=== PATIENT | female | born 1935 | race Caucasian/White ===

== ENCOUNTER → 2016-07-31 | Outpatient (CLI) | payer MEDICARE, OTHER ==
[2016-07-31 09:16] LABS: MEAN CORPUSCULAR HGB CONC 34.6 g/dl (32.0-36.5); MEAN CORPUSCULAR VOLUME 89.5 fl (80.0-96.0); RED CELL DISTRIBUTION WIDTH 12.5 % (11.5-14.5)
[2016-07-31 09:43] LABS: ALBUMIN 3.8 GM/DL (3.2-5.2); ALKALINE PHOSPHATASE 56 U/L (45-117); ALT/SGPT 48 U/L (12-78); ANION GAP 10 MEQ/L (8-16); AST/SGOT 27 U/L (15-37); BILIRUBIN,TOTAL 0.7 MG/DL (0.2-1.0); BLOOD UREA NITROGEN 15 MG/DL (7-18); CALCIUM LEVEL 8.9 MG/DL (8.8-10.2); CARBON DIOXIDE LEVEL 30 MEQ/L (21-32); CHLORIDE LEVEL 97 MEQ/L (98-107); CHOLESTEROL LEVEL 199 MG/DL (<200); CREATININE FOR GFR 0.76 MG/DL (0.55-1.02); GLOMERULAR FILTRATION RATE > 60.0 (>32); GLUCOSE, FASTING 244 MG/DL (83-110); POTASSIUM SERUM 3.7 MEQ/L (3.5-5.1); SODIUM LEVEL 137 MEQ/L (136-145); TOTAL PROTEIN 7.6 GM/DL (6.4-8.2); TRIGLYCERIDES LEVEL 371 MG/DL (<150)
== END ==
LOC: M WUC 08:18
PROVIDERS: ATTEND Family Medicine
DX: N39.0 Urinary tract infection, site not specified (principal); E11.9 Type 2 diabetes mellitus without complications; E78.2 Mixed hyperlipidemia; E55.9 Vitamin D deficiency, unspecified

== ENCOUNTER → 2016-11-15 | Outpatient (CLI) | payer MEDICARE, OTHER ==
[~2016-11-15] MED LIST: AMLO25TA PO; AMLO5TAB2 PO; ASPI81TA PO; CARV3.12 PO; CHLO25TA PO; ELIQ5TAB PO; FISH1000 PO; GLIM2TAB PO; LUTE10TA PO; PRAV40TA2 PO; REDCAP3 PO; SPIR25TA2 PO; TRUL10IN; TRUL10IN SC; VITA10002 PO; VITA500T88 PO; VITMTA PO
[2016-11-15 10:09] LABS: ANION GAP 5 MEQ/L (8-16); BLOOD UREA NITROGEN 14 MG/DL (7-18); CALCIUM LEVEL 9.2 MG/DL (8.8-10.2); CARBON DIOXIDE LEVEL 33 MEQ/L (21-32); CHLORIDE LEVEL 100 MEQ/L (98-107); CREATININE FOR GFR 0.68 MG/DL (0.55-1.02); GLOMERULAR FILTRATION RATE > 60.0 (>32); GLUCOSE, FASTING 261 MG/DL (83-110); POTASSIUM SERUM 3.8 MEQ/L (3.5-5.1); SODIUM LEVEL 138 MEQ/L (136-145)
== END ==
LOC: M WUC 08:16
PROVIDERS: ATTEND Family Medicine
DX: E11.9 Type 2 diabetes mellitus without complications (principal)

== ENCOUNTER 2016-12-15 07:00 | Inpatient (IN) | payer MEDICARE, OTHER ==
[~2016-12-15] VITALS: Ht 152.4 cm; Wt 59.1 kg
[2016-12-15] MEDS ORDERED: CHLO25TA PO ×2 (07:16→10:16)
[2016-12-15] MEDS ORDERED: GLIM2TAB PO ×3 (07:16→10:16)
[2016-12-15] MEDS ORDERED: AMLO5TAB2 PO ×2 (07:16→10:16)
[2016-12-15] MEDS ORDERED: TRUL10IN (07:16)
--- NOTE | 2016-12-15 07:46 | REP ---
Clinical: Chest pain . Comparison: None . Findings: The mediastinum and cardiac silhouette are stable and within normal limits for portable technique. The lung flowers are clear without acute consolidation, effusion, or pneumothorax. Skeletal structures are intact. Impression: No acute cardiopulmonary process appreciated. Signed by Ben Eaton MD 12/15/2016 07:38 A
[2016-12-15 07:50] LABS: BASO % 0.8 % (0.0-1.0); EOS # 0.1 K/mm3 (0.0-0.50); EOS % 1.7 % (0.0-3.0); LARGE UNSTAINED CELL # 0.1 K/mm3 (0.0-0.4); LARGE UNSTAINED CELL % 1.8 % (0.0-4.0); LYMPH # 1.1 K/mm3 (1.5-4.5); LYMPH % 24.8 % (24.0-44.0); MEAN CORPUSCULAR HEMOGLOBIN 31.1 pg (27.0-33.0); MEAN CORPUSCULAR VOLUME 88.7 fl (80.0-96.0); MONO # 0.3 K/mm3 (0.0-0.8); MONO % 5.8 % (0.0-5.0); NEUTROPHILS % 65.2 % (36.0-66.0); PLATELET COUNT, AUTOMATED 188 k/mm3 (150-450); RED CELL DISTRIBUTION WIDTH 12.5 % (11.5-14.5); WHITE BLOOD COUNT 4.5 K/mm3 (4.0-10.0)
[2016-12-15] MEDS: METOPROLOL 5 MG/5 ML VIAL IV SCH ×3 (07:53→08:33)
[2016-12-15 07:56] LABS: INR 0.92
[2016-12-15 08:22] LABS: ALBUMIN 3.6 GM/DL (3.2-5.2); ALBUMIN/GLOBULIN RATIO 1.03 (1.00-1.93); ALKALINE PHOSPHATASE 53 U/L (45-117); ALT/SGPT 42 U/L (12-78); ANION GAP 12 MEQ/L (8-16); AST/SGOT 23 U/L (15-37); BILIRUBIN,DIRECT 0.1 MG/DL (0.0-0.2); BILIRUBIN,TOTAL 0.6 MG/DL (0.2-1.0); BLOOD UREA NITROGEN 13 MG/DL (7-18); CALCIUM LEVEL 8.8 MG/DL (8.8-10.2); CARBON DIOXIDE LEVEL 29 MEQ/L (21-32); CHLORIDE LEVEL 98 MEQ/L (98-107); CREATININE FOR GFR 0.79 MG/DL (0.55-1.02); FREE T4 1.23 NG/DL (0.76-1.46); GLOMERULAR FILTRATION RATE > 60.0 (>32); GLUCOSE, FASTING 356 MG/DL (83-110); POTASSIUM SERUM 3.2 MEQ/L (3.5-5.1); SODIUM LEVEL 139 MEQ/L (136-145); TOTAL PROTEIN 7.1 GM/DL (6.4-8.2)
[2016-12-15] MEDS ORDERED: ASPIRIN 325 MG TAB PO SCH (09:00)
[2016-12-15] MEDS ORDERED: NS 500 ML IV ONE (09:30)
[2016-12-15] MEDS ORDERED: VITA500T88 PO (10:16)
[2016-12-15] MEDS ORDERED: FISH1000 PO (10:16)
[2016-12-15] MEDS ORDERED: VITA10002 PO (10:16)
[2016-12-15] MEDS ORDERED: VITMTA PO (10:16)
[2016-12-15] MEDS ORDERED: TRUL10IN SC (10:16)
[2016-12-15] MEDS ORDERED: REDCAP3 PO (10:16)
[2016-12-15] MEDS ORDERED: PRAV40TA2 PO (10:16)
[2016-12-15] MEDS ORDERED: LUTE10TA PO (10:16)
[2016-12-15] MEDS ORDERED: POTASSIUM CHLORIDE 10 MEQ SR TABLET PO ONE (11:00)
[2016-12-15] MEDS ORDERED: GLUCAGON FOR INJ 1 MG VIAL (J1610) SC PRN (11:30)
[2016-12-15] MEDS ORDERED: DEXTROSE 50% 50 ML SYRINGE IV PRN (11:30)
[2016-12-15] MEDS ORDERED: GLUCOSE 4 GM CHEW TABLET PO PRN (11:30)
[2016-12-15] MEDS: SPIRONOLACTONE 25 MG TAB PO SCH (12:32)
[2016-12-15] MEDS: HumaLOG INSULIN (NovoLOG) PER UNIT SC SCH ×3 (12:32→20:23)
[2016-12-15] MEDS: ENOXAPARIN 100MG/1ML SYRINGE (J1650) SC SCH ×2 (12:33→23:59)
[2016-12-15 16:00] VITALS: BP 140/65
--- NOTE | 2016-12-15 17:27 | ECGEPIP ---
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
[2016-12-15] MEDS: GLIMEPIRIDE 2 MG TAB PO SCH (18:05)
[2016-12-15 20:00] VITALS: BP_SYST 125; BP_SYST 145; BP_DIAS 58; BP_DIAS 66
--- NOTE | 2016-12-15 20:16 | HPE ---
DATE OF ADMISSION: 12/15/2016 CHIEF COMPLAINT: New onset palpitations. HISTORY OF PRESENT ILLNESS: This 81-year-old white female, patient of Dr. Víctor Cruz, presented to [facility] emergency room with new onset of palpitations, which began at roughly 4:00 a.m. today. She states that she got up as she normally does to go to the bathroom and then when she got back into bed she noticed that she did not feel "right." She had an occipital headache and repeated burping sensation, and fluttering sensation of the chest. Denies any chest pain, shortness of breath. No diaphoresis. She had been in normal state of health without any fevers, chills, cough, congestion, abdominal pain, diarrhea, or urinary tract symptoms. She had no alcohol the day prior and had been on her normal medications. She had not been checking her blood sugars, but she has not had classic hypoglycemic symptoms. The patient had a SPECT nuclear stress test done by Dr. Judd in August 2015 for the indication of chest pain, although she does not recall having chest pain. That was read as low risk. The patient reached 5 METS activity, although there was [address] depression in inferolateral leads. There were frequent premature atrial contractions (PAC) and short runs of SVT with rest after exercise. Her was 61%. The patient does report that she has been able to walk roughly every other day at roughly 4 to 5 METS without chest pain, dyspnea on exertion, nor palpitations. The patient has been under increased emotional stress because her actually had a pacemaker placed one week earlier by Dr. Segal. The patient took two 650 mg aspirin this morning because of her symptoms. While the patient was in the emergency room on presentation, she had atrial fibrillation with rapid ventricular rate at 120 to 130, therefore was given 3 IV metoprolol 5 mg at 15 minutes apart. Roughly 20 minutes after the third dose, she had a 5 second period of asystole, during which she felt "funny." No further chromotropic medications have been given. PAST MEDICAL HISTORY: HOSPITALIZATIONS: None recently. ILLNESSES: Hypertension, diabetes mellitus type 2, noninsulin dependent and poorly controlled. Last A1/c in October 2016 was 9.7. Hyperlipidemia, vitamin D deficiency, history of recurrent urinary tract infections. SURGERIES: Appendectomy. MEDICATIONS: Per E-clinical Works and confirmed with patient: - pravastatin 40 mg at night - aspirin 81 mg by mouth daily - Naprosyn 500 mg twice a day as needed - chlorthalidone 12.5 mg daily - amlodipine 5 mg by mouth daily - glyburide 2 mg in the morning and 1 mg at night ALLERGIES: [id number] (KIRK) INHIBITOR, METFORMIN. REVIEW OF SYSTEMS: CONSTITUTIONAL: No weight loss or night sweats. VISION: No diplopia or scatoma. EARS/NOSE/THROAT: No epistaxis or hoarseness. CARDIOVASCULAR: Palpitations as above. No chest pain. PULMONARY: No shortness of breath. No wheeze. GASTROINTESTINAL: No odynophagia, melena or hematochezia. GENITOURINARY: No dysuria or hematuria. DERMATOLOGIC: No rash. ENDOCRINE: No polydipsia, polyuria. RHEUMATOLOGIC: No joint or tendon pain. NEUROLOGIC: No paresthesias or weakness. PHYSICAL EXAMINATION: VITAL SIGNS: 97.0, 75, 20, 115/71, 95% on room air. HEENT: Head is normocephalic, atraumatic. Ears: Tympanic membranes normal bilaterally. Eyes: Clear conjunctivae. Nose: Without discharge. Throat: Clear oropharynx. NECK: Without adenopathy or thyromegaly. CARDIOVASCULAR: Regular rate and rhythm. 2/6 systolic ejection murmur, loudest at upper left sternal border. There is 4 cm of jugular venous distention (JVD). RESPIRATORY: Normal respiratory effort. Normal breath sounds. ABDOMEN: Soft, nontender, nondistended. Positive bowel sounds. No hepatosplenomegaly. EXTREMITIES: Trace pretibial edema bilaterally. NEUROLOGIC: Nonfocal. INVESTIGATIONS: WBC 4.5, hemoglobin and hematocrit 16.3 and 46.5, platelets 188. PT 12.4, PTT 33.6. Sodium 139, potassium 3.2, chloride 98, BUN 13, creatinine 0.8, glucose of 356, AST and ALT 23 and 42, troponin less than 0.02, CK 52, BNP of 122, TSH 1.7, Free T4 1.2. Chest x-ray shows no cardiomegaly. No consolidation or effusion. No pneumothorax. EKG on 12/15/2016 showed normal sinus rhythm at 69 beats per minute. Diffuse repolarization abnormalities, similar to previous EKG from 08/30/2015. ASSESSMENT: This is an 82-year-old white female with new onset symptomatic atrial fibrillation with rapid ventricular rate with asystole after IV metoprolol. PLAN: 1. Cardiovascular. We will admit the patient to [facility] medical/surgical bed. We will continue to hold chronotropic medications given concern for possible tachybrady syndrome. If there are no further significant bradycardic episodes, would introduce low dose carvedilol at 3.125 mg twice a day. For now, we will start spironolactone 25 mg in the morning, given she has very minimal decompensation. She has also been given normal saline 500 mL bolus on admission. This will also help correct her hypokalemia and has antiarrhythmic properties for atrial fibrillation. For now, we will hold her amlodipine given mild decompensation and her chlorthalidone given her systolic blood pressure is still in the 110s. We will followup with serial enzymes and check baseline echocardiogram. We will start anticoagulation with Lovenox 1 mg per kilogram twice a day, given that there is a possibility that she may need permanent pacemaker placed. If this is not the case, we will switch her over to a DOAC. 2. Endocrine. We will continue glyburide but place it 2 mg twice a day and place her on sliding scale NovoLog insulin. The plan was to start the patient in the near future on GLP agonist per Dr. Cruz. We will defer better coverage to him. Continue her home dose statin therapy. Check a morning lipid panel.
[2016-12-15] MEDS: PRAVASTATIN 20 MG TAB PO SCH (20:41)
[2016-12-16] VITALS: BP 131/66
[2016-12-16 04:00] VITALS: BP 159/76
[2016-12-16 05:10] LABS: MEAN CORPUSCULAR HEMOGLOBIN 30.6 pg (27.0-33.0); MEAN CORPUSCULAR HGB CONC 35.2 g/dl (32.0-36.5); RED CELL DISTRIBUTION WIDTH 12.6 % (11.5-14.5); WHITE BLOOD COUNT 5.2 K/mm3 (4.0-10.0)
[2016-12-16 05:21] LABS: ALBUMIN 3.1 GM/DL (3.2-5.2); ALBUMIN/GLOBULIN RATIO 0.89 (1.00-1.93); ALKALINE PHOSPHATASE 40 U/L (45-117); ALT/SGPT 34 U/L (12-78); ANION GAP 11 MEQ/L (8-16); AST/SGOT 19 U/L (15-37); BILIRUBIN,TOTAL 0.5 MG/DL (0.2-1.0); BLOOD UREA NITROGEN 14 MG/DL (7-18); CALCIUM LEVEL 8.4 MG/DL (8.8-10.2); CARBON DIOXIDE LEVEL 28 MEQ/L (21-32); CHLORIDE LEVEL 104 MEQ/L (98-107); CREATININE FOR GFR 0.71 MG/DL (0.55-1.02); GLOMERULAR FILTRATION RATE > 60.0 (>32); GLUCOSE, FASTING 192 MG/DL (83-110); POTASSIUM SERUM 3.7 MEQ/L (3.5-5.1); SODIUM LEVEL 143 MEQ/L (136-145); TOTAL PROTEIN 6.6 GM/DL (6.4-8.2); TRIGLYCERIDES LEVEL 322 MG/DL (<150)
[2016-12-16 05:25] LABS: CHOLESTEROL LEVEL 142 MG/DL (<200)
[2016-12-16 08:00] VITALS: BP 168/77
[2016-12-16] MEDS: HumaLOG INSULIN (NovoLOG) PER UNIT SC SCH ×4 (08:22→20:26)
[2016-12-16] MEDS ORDERED: ASPIRIN 325 MG TAB PO SCH (09:00)
[2016-12-16] MEDS: SPIRONOLACTONE 25 MG TAB PO SCH (09:05)
[2016-12-16] MEDS: ASPIRIN 81 MG CHEW TABLET PO SCH (09:05)
[2016-12-16] MEDS: GLIMEPIRIDE 2 MG TAB PO SCH ×2 (09:38→17:40)
--- NOTE | 2016-12-16 10:23 | ECGEPIP ---
Stationary ECG Study [facility] - ED Test Date: 2016-12-15 Pat Name: MONTY LAGUNA Department: Room: - Gender: F Rn Navigator: elizabeth : 1935 Requested By: NEFTALI Ramos Order Number: [id number] Reading MD: Whitley Feliciano Measurements Intervals [place] Rate: 69 P: 60 SD: 180 QRS: 17 QRSD: 93 T: 59 QT: 381 QTc: 410 Interpretive Statements SINUS RHYTHM NONSPECIFIC ST & T-WAVE ABNORMALITY DELAYED R PROGRESSION RHYTHM CHANGE 7:16 Electronically Signed On 12-16-2016 10:22:57 EDT by Whitley Feliciano
[2016-12-16 12:00] VITALS: BP 191/88
[2016-12-16] MEDS: ENOXAPARIN 100MG/1ML SYRINGE (J1650) SC SCH (12:56)
--- NOTE | 2016-12-16 14:11 | IPNPDOC ---
Subjective Date Seen The patient was seen on 12/16/16. Subjective Chief Complaint/HPI The patient is a 81-year-old female admitted with a reason for visit of Atrial Fibrillation. Events since last encounter feels fine-wants to dc home Constitutional: Denies: Chills, Fever Eyes: Denies: Pain Pulmonary: Denies: Dyspnea, Cough Cardiovascular: Denies: Chest Pain, Palpitations Gastrointestinal: Denies: Nausea, Vomiting Genitourinary: Denies: Dysuria Objective Physical Examination General Exam: Positive: Alert Eye Exam: Positive: PERRLA Chest Exam: Positive: Clear to auscultation Heart Exam: Positive: Rate Normal, Normal S1, Normal S2, Murmurs (2/6 MIKAL loudest R2 ICS ) Telemetry: Positive: No significant arrhythmia Abdomen Exam: Positive: Normal bowel sounds Extremity Exam: Negative: Edema Assessment /Plan Problems (1) Atrial fibrillation Status: Acute Problem Text: 12/16 no recurrent AF since admission 12/15 (converted c metoprolol 5 IV x 3 over 45 min, but then 5 sec pause); remains SR 70-80s; therefore, change Lovenox to apixiban 5 BID and + carvedilol 3.125 BID 12/15 noc ox read pending 12/15 TTE read pending 12/15 TSH 1.7 12/16 T-I 0.03 (2) Hypertension Status: Chronic Problem Text: HD almo 5, CTD 12.5 QD--held on admission 2 hypotension 12/16 restarted amlo at 2.5 BID and added carvedilol 3.125 BID given pAF to juni 25 (switched on admission from CT 12.5 for anti-arrhythmic properties and hypoK on admission. 3.2) 12/16 K 3.7, Mg 2.1 (3) Hyperlipidemia Status: Chronic Response to Treatment: Stable Problem Text: 11/2016 lipids 40/38/322 on prava 40 (4) T2DM (type 2 diabetes mellitus) Status: Chronic Problem Text: to start Trulicity as outpatient in near future 12/16 AC BG mid 200s; therefore, glim 2 BID (HD) to 4 BID 10/2016 A1C 9.7 Plan/VTE VTE Prophylaxis Ordered?: Yes Plan probably dc in AM if stable VS, I&O, 24H, Fishbone Vital Signs/I&O Vital Signs Date Time Temp Pulse Resp B/P (MAP) Pulse Ox O2 Delivery O2 Flow Rate FiO2 12/16/16 12:00 98.6 81 18 191/88 (122) 97 Room Air 12/15/16 13:00 2.0 I&O- Last 24 Hours up to 6 AM 12/16/16 05:59 Intake Total 1180 ml Output Total 250 ml Balance 930 ml Laboratory Data 24H LABS Laboratory Tests 2 12/15/16 17:36: Bedside Glucose (Misc Panel) 228H 12/15/16 19:46: Bedside Glucose (Misc Panel) 248H 12/16/16 04:28: Anion Gap 11, Glomerular Filtration Rate > 60.0, Blood Urea Nitrogen 14, Creatinine 0.71, Sodium Level 143, Potassium Level 3.7, Chloride Level 104, Carbon Dioxide Level 28, Calcium Level 8.4L, Aspartate Amino Transf (AST/SGOT) 19, Alanine Aminotransferase (ALT/SGPT) 34, Alkaline Phosphatase 40L, Total Bilirubin 0.5, Triglycerides Level 322H, LDL Cholesterol 39.6, Total Protein 6.6 , Albumin 3.1L, Magnesium Level 2.0, Troponin I 0.03#, Albumin/Globulin Ratio 0.89L, Total Cholesterol 142, Non-HDL Cholesterol (LDL + VLDL) 104, Total HDL Cholesterol 38L, Cholesterol/HDL Ratio 3.736 12/16/16 12:51: Bedside Glucose (Misc Panel) 218H CBC/BMP Laboratory Tests 12/16/16 04:28 Red Blood Count 4.54, Mean Corpuscular Volume 87.0, Mean Corpuscular Hemoglobin 30.6, Mean Corpuscular Hemoglobin Concent 35.2, Red Cell Distribution Width 12.6 , Calcium Level 8.4 L, Aspartate Amino Transf (AST/SGOT) 19, Alanine Aminotransferase (ALT/SGPT) 34, Alkaline Phosphatase 40 L, Total Bilirubin 0.5, Triglycerides Level 322 H, LDL Cholesterol 39.6, Total Protein 6.6, Albumin 3.1 L Jose Causey M.D. Dec 16, 2016 14:11
--- NOTE | 2016-12-16 14:36 | ECHO ---
DATE: 12/16/2016 REFERRING PHYSICIAN: Dr. Jose Causey Indication: congestive heart failure. Patient measures 60 inches and weighs 132 pounds. DIMENSIONS: IVS 1.0 LV 4.3 LVPW 1.0 LA 3.0 Aorta 2.9 Ascending aorta 3.6 RV 2.3 LV systolic 2.9 FINDINGS: The study is of good technical quality. Left ventricle is of normal size and systolic function with estimated ejection fraction (EF) around 60-65%. Right ventricle is also normal size and systolic function. Both atria appear grossly normal. Aortic valve is minimally sclerotic but has normal mobility. Same applies for mitral valve with mild degenerative abnormalities. Tricuspid valve appears normal. Pulmonic valve was not well visualized. No pericardial effusion is noted. Inferior vena cava is normal size. Aortic root, aortic arch , and abdominal aorta all appear normal. Doppler interrogation reveals no aortic stenosis and mild aortic insufficiency. There is trace mitral and trace tricuspid insufficiency. Calculated pulmonary artery pressure is within normal limits. Mitral inflow pattern and tissue Doppler imaging of mitral annulus reveal grade 1 diastolic dysfunction (but tissue Doppler velocities of mitral annulus are very low, E prime septal 5.5 and E prime lateral 5.6 cm/s). CONCLUSIONS: 1. Study is of good technical quality. 2. Normal left ventricular (LV) size, systolic function. Grade 1 diastolic dysfunction. 3. No significant valvular disease. 4. Normal central venous pressure and likely normal pulmonary artery pressure. COMMENT: Subacute bacterial endocarditis (SBE) prophylaxis is not recommended. MTDD
[2016-12-16 16:00] VITALS: BP 169/77
[2016-12-16 20:00] VITALS: BP 178/59
[2016-12-16] MEDS: CARVedilol 3.125 MG TAB PO SCH (20:25)
[2016-12-16] MEDS: PRAVASTATIN 20 MG TAB PO SCH (20:25)
[2016-12-17] MEDS: ENOXAPARIN 100MG/1ML SYRINGE (J1650) SC SCH
[2016-12-17 00:30] VITALS: BP 148/80
[2016-12-17 04:00] VITALS: BP 140/82
[2016-12-17 04:35] LABS: BASO % 0.9 % (0.0-1.0); EOS # 0.2 K/mm3 (0.0-0.50); EOS % 5.1 % (0.0-3.0); LARGE UNSTAINED CELL # 0.1 K/mm3 (0.0-0.4); LARGE UNSTAINED CELL % 2.3 % (0.0-4.0); LYMPH # 1.5 K/mm3 (1.5-4.5); MEAN CORPUSCULAR HEMOGLOBIN 31.1 pg (27.0-33.0); MEAN CORPUSCULAR HGB CONC 35.6 g/dl (32.0-36.5); MEAN CORPUSCULAR VOLUME 87.4 fl (80.0-96.0); MONO # 0.3 K/mm3 (0.0-0.8); MONO % 6.5 % (0.0-5.0); NEUTROPHILS # 2.1 K/mm3 (1.8-7.7); NEUTROPHILS % 50.1 % (36.0-66.0); PLATELET COUNT, AUTOMATED 168 k/mm3 (150-450); RED CELL DISTRIBUTION WIDTH 12.5 % (11.5-14.5); WHITE BLOOD COUNT 4.2 K/mm3 (4.0-10.0)
[2016-12-17 04:51] LABS: ALBUMIN 3.1 GM/DL (3.2-5.2); ALBUMIN/GLOBULIN RATIO 0.84 (1.00-1.93); ALKALINE PHOSPHATASE 45 U/L (45-117); ALT/SGPT 34 U/L (12-78); ANION GAP 8 MEQ/L (8-16); AST/SGOT 22 U/L (15-37); BILIRUBIN,TOTAL 0.6 MG/DL (0.2-1.0); BLOOD UREA NITROGEN 15 MG/DL (7-18); CALCIUM LEVEL 8.6 MG/DL (8.8-10.2); CARBON DIOXIDE LEVEL 30 MEQ/L (21-32); CHLORIDE LEVEL 103 MEQ/L (98-107); CREATININE FOR GFR 0.72 MG/DL (0.55-1.02); GLOMERULAR FILTRATION RATE > 60.0 (>32); GLUCOSE, FASTING 215 MG/DL (83-110); POTASSIUM SERUM 3.7 MEQ/L (3.5-5.1); SODIUM LEVEL 141 MEQ/L (136-145); TOTAL PROTEIN 6.8 GM/DL (6.4-8.2)
[2016-12-17] MEDS: HumaLOG INSULIN (NovoLOG) PER UNIT SC SCH (07:30)
[2016-12-17 08:00] VITALS: BP 156/76
[2016-12-17] MEDS: GLIMEPIRIDE 2 MG TAB PO SCH (08:46)
[2016-12-17] MEDS: CARVedilol 3.125 MG TAB PO SCH (08:49)
[2016-12-17] MEDS: SPIRONOLACTONE 25 MG TAB PO SCH (08:49)
[2016-12-17 08:50] VITALS: BP 156/76
[2016-12-17] MEDS: ASPIRIN 81 MG CHEW TABLET PO SCH (08:50)
[2016-12-17] MEDS ORDERED: AMLO25TA PO (09:39)
[2016-12-17] MEDS ORDERED: CARV3.12 PO (09:39)
[2016-12-17] MEDS ORDERED: ASPI81TA PO (09:39)
[2016-12-17] MEDS ORDERED: SPIR25TA2 PO (09:39)
[2016-12-17] MEDS ORDERED: ELIQ5TAB PO (09:40)
--- NOTE | 2016-12-17 10:22 | NOCOX ---
DATE OF PROCEDURE: 12/15/2016 Oxygen saturation was 97% on room air with a heart rate of 71 at baseline. The entire test was performed on room air. Oxygen saturation ranged from 76-99%. Heart rate ranged from 52-116. Longest continuous time with a saturation less than 88% was 36 minutes. However, the total time with an oxygen saturation less than 88% was 2 minutes and 24 seconds. There was minimal variation throughout the evening. IMPRESSION: Minimal hypoxia without significantly prolonged hypoxic events. There is variation in both the heart rate and oxygen saturation. If sleep apnea is suspected would consider in lab polysomnogram.
--- NOTE | 2016-12-17 10:27 | DSES ---
DATE OF ADMISSION: 12/15/2016 DATE OF DISCHARGE: PRIMARY CARE PROVIDER: Dr. Víctor Cruz. HISTORY: This is an 81-year-old female patient who presented to [facility] emergency room with the onset of palpitations. She got up at about 4:00 a.m. to go to the bathroom as she normally does. When she went back to bed, she noticed she did not feel right. She also noted an occipital headache and repeated burping sensation along with a fluttering in her chest prompting her presentation in the emergency room where she was found to be in atrial fibrillation, new onset. She has been started on carvedilol 3.125 mg twice daily as well as spironolactone 25 mg daily. Her chlorthalidone was held as well. She was admitted to the progressive care unit for further management and monitoring including telemetry. She has converted from atrial fibrillation to normal sinus rhythm. She has tolerated the carvedilol as well as apixaban 5 mg twice daily. She has been started on Norvasc for blood pressure control 2.5 mg daily as well. On admission, she was placed on Lovenox 60 mg twice daily and the apixaban will be started at discharge. DISCHARGE DIAGNOSES: Atrial fibrillation, new onset. Hypertension. Hyperlipidemia. Diabetes mellitus type 2. DISCHARGE MEDICATIONS: - apixaban 5 mg by mouth daily - carvedilol 3.25 mg by mouth daily - amlodipine 2.5 mg daily - aspirin 81 mg daily - spironolactone 25 mg daily - vitamin C 500 mg daily - vitamin B12 1000 mcg daily - fish oil 1000 mg daily - glimepiride 2 mg in the morning, 1 mg in the evening. - Lutin 10 mg daily - multivitamin 1 tablet daily - pravastatin 20 mg daily. - red yeast rice 600 mg daily - Trulicity 0.75 mg subcu weekly. Discharge plan will be to followup with Dr. Cruz in one week. Activity should be as tolerated. Diet should be consistent carbohydrate.
== END 2016-12-17 10:10 | disposition home or self-care (01) | DRG 310 ==
LOC: M ED 07:00 → M ED INP 11:17 → M ICU 20:05
PROVIDERS: ADMIT Family Medicine; ATTEND Family Medicine
DX: I48.91 Unspecified atrial fibrillation (principal); I10 Essential (primary) hypertension; E78.5 Hyperlipidemia, unspecified; E11.9 Type 2 diabetes mellitus without complications; Z79.82 Long term (current) use of aspirin; Z79.84 Long term (current) use of oral hypoglycemic drugs; Z79.899 Other long term (current) drug therapy; Z87.440 Personal history of urinary (tract) infections; Z88.8 Allergy status to other drugs, medicaments and biological substances

== ENCOUNTER → 2016-12-31 | Outpatient (CLI) | payer MEDICARE, OTHER ==
--- NOTE | 2017-01-03 19:22 | HOLTMON ---
[facility] Test Date: 2016-12-31 Pat Name: MONTY LAGUNA Department: Room: - Gender: Mitten Sewer: Tiesha Schultz : 1935 Requested By: Víctor Cruz Order Number: [id number] Reading MD: Socorro Matthews Interpretive Statements Patient was monitored for 24 hours. Sinus rhythm with normal AV conduction was the baseline mechanism. Minimal HR was 45 bpm, average HR 63 bpm and maximum HR 130 bpm. There were no pauses over 2 seconds and no episodes of atrial fibrillation. Rare PVC's were seen, no ventricular tachycardia. Occasional PAC's were observed including runs of atrial tachycardia (max. 8 beats). There was no diary. Electronically Signed On 01-03-2017 19:21:50 EDT by Socorro Matthews
== END ==
LOC: M EKG 11:11
PROVIDERS: ATTEND Family Medicine
DX: I48.0 Paroxysmal atrial fibrillation (principal)

== ENCOUNTER → 2017-01-22 | Outpatient (CLI) | payer MEDICARE, OTHER ==
[2017-01-22 14:04] LABS: ANION GAP 7 MEQ/L (8-16); BLOOD UREA NITROGEN 18 MG/DL (7-18); CALCIUM LEVEL 9.1 MG/DL (8.8-10.2); CARBON DIOXIDE LEVEL 28 MEQ/L (21-32); CHLORIDE LEVEL 103 MEQ/L (98-107); CREATININE FOR GFR 0.76 MG/DL (0.55-1.02); GLOMERULAR FILTRATION RATE > 60.0 (>32); GLUCOSE, FASTING 123 MG/DL (83-110); POTASSIUM SERUM 4.8 MEQ/L (3.5-5.1); SODIUM LEVEL 138 MEQ/L (136-145)
== END ==
LOC: M WUC 09:43
PROVIDERS: ATTEND Family Medicine
DX: I48.0 Paroxysmal atrial fibrillation (principal); E11.9 Type 2 diabetes mellitus without complications

== ENCOUNTER → 2018-01-13 | Outpatient (CLI) | payer MEDICARE, OTHER ==
[2018-01-13 13:57] LABS: HEMATOCRIT 45.2 % (36.0-47.0); MEAN CORPUSCULAR HEMOGLOBIN 29.5 pg (27.0-33.0); MEAN CORPUSCULAR HGB CONC 33.2 g/dl (32.0-36.5); MEAN CORPUSCULAR VOLUME 88.8 fl (80.0-96.0); PLATELET COUNT, AUTOMATED 196 10^3/uL (150-450); RED BLOOD COUNT 5.09 10^6/uL (4.00-5.40); RED CELL DISTRIBUTION WIDTH 13.1 % (11.5-14.5); WHITE BLOOD COUNT 5.5 10^3/uL (4.0-10.0)
[2018-01-13 14:02] LABS: ESTIMATED AVERAGE GLUCOSE 131 MG/DL (60-110); HEMOGLOBIN A1c 6.2 %
[2018-01-13 14:13] LABS: ALBUMIN 3.8 GM/DL (3.2-5.2); ALBUMIN/GLOBULIN RATIO 1.09 (1.00-1.93); ALKALINE PHOSPHATASE 48 U/L (45-117); ALT/SGPT 25 U/L (12-78); ANION GAP 8 MEQ/L (8-16); AST/SGOT 14 U/L (7-37); BILIRUBIN,TOTAL 0.7 MG/DL (0.2-1.0); BLOOD UREA NITROGEN 16 MG/DL (7-18); CALCIUM LEVEL 8.8 MG/DL (8.8-10.2); CARBON DIOXIDE LEVEL 28 MEQ/L (21-32); CHLORIDE LEVEL 105 MEQ/L (98-107); CHOLESTEROL LEVEL 159 MG/DL (<200); CHOLESTEROL RISK RATIO 3.613 (<5); CREATININE FOR GFR 0.78 MG/DL (0.55-1.30); GLOMERULAR FILTRATION RATE > 60.0 (>32); GLUCOSE, FASTING 121 MG/DL (70-100); HDL CHOLESTEROL 44 MG/DL (>40); LDL CHOLESTEROL 68 MG/DL (<100); NON-HDL-C 115 MG/DL; POTASSIUM SERUM 4.9 MEQ/L (3.5-5.1); SODIUM LEVEL 141 MEQ/L (136-145); TOTAL 25(OH) VITAMIN D 36.7 NG/ML (30.0-100.0); TOTAL PROTEIN 7.3 GM/DL (6.4-8.2); TRIGLYCERIDES LEVEL 237 MG/DL (<150)
[2018-01-13 14:22] LABS: MALB URINE SIEMENS 12.1 MG/L
[2018-01-13 14:26] LABS: MAU/CREAT RATIO 20.2 MCG/MG (0.0-30.0)
== END ==
LOC: M WUC 09:07
DX: I48.0 Paroxysmal atrial fibrillation (principal); E11.9 Type 2 diabetes mellitus without complications; E78.2 Mixed hyperlipidemia; E55.9 Vitamin D deficiency, unspecified
CPT/HCPCS: 80053

== ENCOUNTER 2018-01-21 16:50 | Inpatient (IN) | payer MEDICARE, OTHER ==
[~2018-01-21 16:50] MED LIST changes: -AMLO25TA PO; -AMLO5TAB2 PO; -ASPI81TA PO; -CARV3.12 PO; -CHLO25TA PO; +DEXTROSE 50% 50 ML SYRINGE IV; -ELIQ5TAB PO; -FISH1000 PO; -GLIM2TAB PO; +GLUCAGON FOR INJ 1 MG VIAL (J1610) SC; +GLUCOSE 4 GM CHEW TABLET PO; -LUTE10TA PO; -PRAV40TA2 PO; -REDCAP3 PO; -SPIR25TA2 PO; -TRUL10IN; -TRUL10IN SC; -VITA10002 PO; -VITA500T88 PO; -VITMTA PO
[2018-01-21 17:59] LABS: BEDSIDE GLUCOSE 138 MG/DL (83-110)
[2018-01-21 18:01] LABS: HEMATOCRIT 44.3 % (36.0-47.0); HEMOGLOBIN 14.9 g/dl (12.0-15.5); MEAN CORPUSCULAR HEMOGLOBIN 29.7 pg (27.0-33.0); MEAN CORPUSCULAR HGB CONC 33.6 g/dl (32.0-36.5); MEAN CORPUSCULAR VOLUME 88.4 fl (80.0-96.0); PLATELET COUNT, AUTOMATED 199 10^3/uL (150-450); RED BLOOD COUNT 5.01 10^6/uL (4.00-5.40); WHITE BLOOD COUNT 7.3 10^3/uL (4.0-10.0)
[2018-01-21 18:53] LABS: APPEARANCE, URINE MANUAL CLOUDY (CLEAR); BILIRUBIN, URINE MANUAL OBSCURED (NEGATIVE); BLOOD URINE MANUAL OBSCURED (NEGATIVE); COLOR, URINE MANUAL AMBER (YELLOW); GLUCOSE, URINE (UA) MANUAL OBSCURED mg/dL (NEGATIVE); KETONE, URINE MANUAL OBSCURED mg/dL (NEGATIVE); LEUKOCYTE ESTERASE, URINE MAN OBSCURED (NEGATIVE); NITRITE, URINE MANUAL OBSCURED (NEGATIVE); PH,URINE MAN OBSCURED UNITS (5.0 - 7.0); PROTEIN, URINE MANUAL OBSCURED mg/dL (NEGATIVE); UROBILINOGEN, URINE MANUAL OBSCURED mg/dl (NORMAL)
[2018-01-21 18:54] LABS: MICROSCOPIC INDICATED? MAN YES (NO)
[2018-01-21 19:05] LABS: SQUAMOUS EPITHELIAL CELL URINE SMALL AMOUNT /hpf (SMALL AMT)
[2018-01-21 19:08] LABS: OTHER CRYSTALS, URINE BILIRUBIN /hpf
[2018-01-21 19:09] LABS: BACTERIA, URINE LARGE AMOUNT; HYALINE CAST, URINE NONE SEEN /lpf (0-1); MICROSCOPIC EXAM PERFORMED
[2018-01-21] MEDS: METOPROLOL 5 MG/5 ML VIAL IV ×3 (19:19→19:50)
[2018-01-21 20:16] LABS: BEDSIDE GLUCOSE 155 MG/DL (83-110)
[2018-01-21] MEDS: HumaLOG INSULIN (NovoLOG) PER UNIT SC (20:53)
[2018-01-21] MEDS: PRAVASTATIN 20 MG TAB PO (20:53)
[2018-01-21] MEDS: APIXABAN 5 MG TAB (ELIQUIS) PO (20:53)
[2018-01-21] MEDS: CARVedilol 6.25 MG TAB PO (20:53)
[2018-01-21] MEDS ORDERED: APIXABAN 2.5 MG TAB (ELIQUIS) PO (21:00)
[2018-01-21] MEDS ORDERED: CEPHALEXIN 500 MG CAP PO (21:00)
[2018-01-21 22:36] LABS: CK-MB VALUE MASS < 1.0 NG/ML (<3.6); CPK CREATINE PHOSPHOKINASE 54 U/L (26-192); MB/CK RELATIVE INDEX 1.85 (< OR =4); TROPONIN I < 0.02 NG/ML (< 0.10)
[2018-01-21 22:45] LABS: BLOOD UREA NITROGEN 26 MG/DL (7-18); CHLORIDE LEVEL 110 MEQ/L (98-107); GLOMERULAR FILTRATION RATE > 60.0 (>32); GLUCOSE, FASTING 142 MG/DL (70-100); SODIUM LEVEL 142 MEQ/L (136-145)
[2018-01-21 22:46] LABS: ANION GAP 8 MEQ/L (8-16); CALCIUM LEVEL 8.9 MG/DL (8.8-10.2); CARBON DIOXIDE LEVEL 24 MEQ/L (21-32)
[2018-01-21 22:47] LABS: ALBUMIN 3.8 GM/DL (3.2-5.2); ALBUMIN/GLOBULIN RATIO 1.03 (1.00-1.93); ALKALINE PHOSPHATASE 49 U/L (45-117); ALT/SGPT 25 U/L (12-78); AST/SGOT 20 U/L (7-37); BILIRUBIN,TOTAL 0.4 MG/DL (0.2-1.0); MAGNESIUM LEVEL 2.3 MG/DL (1.8-2.4); TOTAL PROTEIN 7.5 GM/DL (6.4-8.2)
[2018-01-22] MEDS: CEPHALEXIN 500 MG CAP PO ×3 (00:47→20:21)
[2018-01-22 05:01] LABS: HEMATOCRIT 43.4 % (36.0-47.0); HEMOGLOBIN 14.3 g/dl (12.0-15.5); MEAN CORPUSCULAR HEMOGLOBIN 29.2 pg (27.0-33.0); MEAN CORPUSCULAR HGB CONC 32.9 g/dl (32.0-36.5); MEAN CORPUSCULAR VOLUME 88.8 fl (80.0-96.0); PLATELET COUNT, AUTOMATED 185 10^3/uL (150-450); RED BLOOD COUNT 4.89 10^6/uL (4.00-5.40); RED CELL DISTRIBUTION WIDTH 13.1 % (11.5-14.5); WHITE BLOOD COUNT 10.9 10^3/uL (4.0-10.0)
[2018-01-22 05:48] LABS: ANION GAP 7 MEQ/L (8-16); BLOOD UREA NITROGEN 22 MG/DL (7-18); CALCIUM LEVEL 8.7 MG/DL (8.8-10.2); CARBON DIOXIDE LEVEL 26 MEQ/L (21-32); CHLORIDE LEVEL 106 MEQ/L (98-107); CK-MB VALUE MASS < 1.0 NG/ML (<3.6); CPK CREATINE PHOSPHOKINASE 32 U/L (26-192); CREATININE FOR GFR 0.89 MG/DL (0.55-1.30); GLOMERULAR FILTRATION RATE > 60.0 (>32); GLUCOSE, FASTING 145 MG/DL (70-100); MAGNESIUM LEVEL 2.2 MG/DL (1.8-2.4); MB/CK RELATIVE INDEX 3.12 (< OR =4); POTASSIUM SERUM 4.2 MEQ/L (3.5-5.1); SODIUM LEVEL 139 MEQ/L (136-145); TROPONIN I < 0.02 NG/ML (< 0.10)
[2018-01-22] MEDS: APIXABAN 5 MG TAB (ELIQUIS) PO (09:00)
[2018-01-22] MEDS: HumaLOG INSULIN (NovoLOG) PER UNIT SC ×4 (09:01→20:22)
[2018-01-22] MEDS: CARVedilol 6.25 MG TAB PO ×2 (09:04→20:22)
[2018-01-22] MEDS: NS 0.45% 1,000 ML IV (09:40)
[2018-01-22] MEDS: APIXABAN 2.5 MG TAB (ELIQUIS) PO ×2 (09:40→20:21)
[2018-01-22] MEDS: DIGOXIN INJ 0.5 MG/2 ML AMP (J1160) IV ×2 (09:40→12:46)
[2018-01-22 11:29] LABS: BEDSIDE GLUCOSE 165 MG/DL (83-110)
[2018-01-22 15:26] LABS: CK-MB VALUE MASS < 1.0 NG/ML (<3.6); CPK CREATINE PHOSPHOKINASE 52 U/L (26-192); MB/CK RELATIVE INDEX 1.92 (< OR =4); TROPONIN I < 0.02 NG/ML (< 0.10)
[2018-01-22 17:13] LABS: BEDSIDE GLUCOSE 119 MG/DL (83-110)
[2018-01-22 20:21] LABS: BEDSIDE GLUCOSE 132 MG/DL (83-110)
[2018-01-22] MEDS: PRAVASTATIN 20 MG TAB PO (20:21)
[2018-01-23 04:57] LABS: HEMATOCRIT 41.7 % (36.0-47.0); HEMOGLOBIN 13.7 g/dl (12.0-15.5); MEAN CORPUSCULAR HEMOGLOBIN 29.6 pg (27.0-33.0); MEAN CORPUSCULAR HGB CONC 32.9 g/dl (32.0-36.5); MEAN CORPUSCULAR VOLUME 90.1 fl (80.0-96.0); PLATELET COUNT, AUTOMATED 179 10^3/uL (150-450); RED BLOOD COUNT 4.63 10^6/uL (4.00-5.40); WHITE BLOOD COUNT 6.1 10^3/uL (4.0-10.0)
[2018-01-23 05:24] LABS: ANION GAP 7 MEQ/L (8-16); BLOOD UREA NITROGEN 20 MG/DL (7-18); CALCIUM LEVEL 8.6 MG/DL (8.8-10.2); CARBON DIOXIDE LEVEL 26 MEQ/L (21-32); CHLORIDE LEVEL 108 MEQ/L (98-107); CREATININE FOR GFR 0.87 MG/DL (0.55-1.30); GLOMERULAR FILTRATION RATE > 60.0 (>32); GLUCOSE, FASTING 132 MG/DL (70-100); POTASSIUM SERUM 4.1 MEQ/L (3.5-5.1); SODIUM LEVEL 141 MEQ/L (136-145)
[2018-01-23] MEDS: CEPHALEXIN 500 MG CAP PO (08:36)
[2018-01-23] MEDS: DIGOXIN 0.125 MG TAB PO (08:37)
[2018-01-23] MEDS: CARVedilol 6.25 MG TAB PO (08:37)
[2018-01-23] MEDS: APIXABAN 2.5 MG TAB (ELIQUIS) PO (08:37)
[2018-01-23] MEDS: HumaLOG INSULIN (NovoLOG) PER UNIT SC (08:38)
== END 2018-01-23 10:42 | disposition home or self-care (01) | DRG 309 ==
LOC: M ICU 16:50
DX: I48.0 Paroxysmal atrial fibrillation (principal); N39.0 Urinary tract infection, site not specified; E78.2 Mixed hyperlipidemia; E11.9 Type 2 diabetes mellitus without complications; E88.81 Metabolic syndrome and other insulin resistance; E55.9 Vitamin D deficiency, unspecified; B96.20 Unspecified Escherichia coli [E. coli] as the cause of diseases classified elsewhere; Z79.82 Long term (current) use of aspirin; Z79.84 Long term (current) use of oral hypoglycemic drugs; Z79.899 Other long term (current) drug therapy; Z88.8 Allergy status to other drugs, medicaments and biological substances; Z90.49 Acquired absence of other specified parts of digestive tract

== ENCOUNTER → 2018-01-21 | Outpatient (REF) | payer MEDICARE, OTHER ==
[2018-01-21 20:43] LABS: APPEARANCE, URINE MANUAL TURBID (CLEAR); COLOR, URINE MANUAL ORANGE (YELLOW)
[2018-01-21 20:45] LABS: BILIRUBIN, URINE MANUAL OBSCURED (NEGATIVE); BLOOD URINE MANUAL NEGATIVE (NEGATIVE); GLUCOSE, URINE (UA) MANUAL NEGATIVE (NEGATIVE); KETONE, URINE MANUAL OBSCURED mg/dL (NEGATIVE); LEUKOCYTE ESTERASE, URINE MAN POSITIVE (NEGATIVE); MICROSCOPIC INDICATED? MAN YES (NO); NITRITE, URINE MANUAL OBSCURED (NEGATIVE); PROTEIN, URINE MANUAL OBSCURED mg/dL (NEGATIVE); SPECIFIC GRAVITY,URINE MANUAL 1.019 (1.002-1.035); UROBILINOGEN, URINE MANUAL OBSCURED mg/dl (NORMAL)
[2018-01-21 20:53] LABS: MICROSCOPIC EXAM PERFORMED
[2018-01-21 21:00] LABS: CALCIUM OXALATE CRYSTALS,URINE MOD AMOUNT /hpf; OTHER CRYSTALS, URINE SULFA /hpf; WBC, URINE 15-20 /hpf (0-3)
[2018-01-21 21:01] LABS: BACTERIA, URINE MOD AMOUNT; HYALINE CAST, URINE NONE SEEN /lpf (0-1); RBC, URINE 0-1 /hpf (0-3); SQUAMOUS EPITHELIAL CELL URINE MOD AMOUNT /hpf (SMALL AMT)
[2018-01-21 21:02] LABS: AMORPHOUS SEDIMENT, URINE SMALL AMOUNT (NEGATIVE); MUCUS, URINE SMALL AMOUNT (NEGATIVE)
[2018-01-21 21:03] LABS: TRANSITIONAL EPI CELLS, URINE SMALL AMOUNT /hpf
== END ==
LOC: M SFHCADAM 19:48
DX: R00.0 Tachycardia, unspecified (principal); R30.0 Dysuria

== ENCOUNTER → 2018-02-04 | Outpatient (REF) | payer MEDICARE, OTHER ==
[2018-02-04 13:34] LABS: APPEARANCE, URINE CLEAR (CLEAR); BACTERIA, URINE AUTO 1+ (NEGATIVE); BILIRUBIN, URINE AUTO NEGATIVE (NEGATIVE); BLOOD, URINE BLOOD NEGATIVE (NEGATIVE); COLOR, URINE STRAW (YELLOW); GLUCOSE, URINE (UA) AUTO NEGATIVE (NEGATIVE); KETONE, URINE AUTO NEGATIVE (NEGATIVE); LEUKOCYTE ESTERASE, URINE AUTO 2+ (NEGATIVE); NITRITE, URINE AUTO NEGATIVE (NEGATIVE); PROTEIN, URINE AUTO NEGATIVE (NEGATIVE); RBC, URINE AUTO 0 /HPF (0-3); SPECIFIC GRAVITY URINE AUTO 1.008 (1.002-1.035); SQUAMOUS EPITHELIAL CELL UR AU 0 /HPF (0-6); UROBILINOGEN, URINE AUTO 0.2 mg/dL (0.0-2.0); WBC, URINE AUTO 5 /HPF (0-3)
== END ==
LOC: M SFHCADAM 12:27
DX: Z87.440 Personal history of urinary (tract) infections (principal)
CPT/HCPCS: 81001

== ENCOUNTER → 2018-02-27 | Outpatient (REF) | payer MEDICARE, OTHER ==
[2018-02-27 13:11] LABS: HEMATOCRIT 45.3 % (36.0-47.0); HEMOGLOBIN 14.6 g/dl (12.0-15.5); MEAN CORPUSCULAR HEMOGLOBIN 29.4 pg (27.0-33.0); MEAN CORPUSCULAR HGB CONC 32.2 g/dl (32.0-36.5); MEAN CORPUSCULAR VOLUME 91.3 fl (80.0-96.0); PLATELET COUNT, AUTOMATED 207 10^3/uL (150-450); RED BLOOD COUNT 4.96 10^6/uL (4.00-5.40); RED CELL DISTRIBUTION WIDTH 13.1 % (11.5-14.5); WHITE BLOOD COUNT 5.3 10^3/uL (4.0-10.0)
[2018-02-27 14:25] LABS: ALBUMIN 4.1 GM/DL (3.2-5.2); ALBUMIN/GLOBULIN RATIO 1.17 (1.00-1.93); ALKALINE PHOSPHATASE 60 U/L (45-117); ALT/SGPT 30 U/L (12-78); ANION GAP 7 MEQ/L (8-16); AST/SGOT 13 U/L (7-37); BILIRUBIN,TOTAL 0.6 MG/DL (0.2-1.0); BLOOD UREA NITROGEN 16 MG/DL (7-18); CALCIUM LEVEL 9.4 MG/DL (8.8-10.2); CARBON DIOXIDE LEVEL 29 MEQ/L (21-32); CHLORIDE LEVEL 101 MEQ/L (98-107); CREATININE FOR GFR 0.83 MG/DL (0.55-1.30); GLOMERULAR FILTRATION RATE > 60.0 (>32); GLUCOSE, FASTING 173 MG/DL (70-100); POTASSIUM SERUM 4.7 MEQ/L (3.5-5.1); SODIUM LEVEL 137 MEQ/L (136-145); TOTAL PROTEIN 7.6 GM/DL (6.4-8.2)
== END ==
LOC: M SFHCADAM 09:55
DX: I11.9 Hypertensive heart disease without heart failure (principal); I48.0 Paroxysmal atrial fibrillation; E11.9 Type 2 diabetes mellitus without complications; E78.2 Mixed hyperlipidemia
CPT/HCPCS: 80053

== ENCOUNTER → 2018-03-22 | Outpatient (REF) | payer MEDICARE, OTHER ==
[~2018-03-22] MED LIST changes: +AMLO25TA PO; +AMLO5TAB6 PO; +ASCO500T PO; +ASPI325T PO; +ASPI81CH40 PO; +CARV3.12 PO; +CARV6.25 PO; +CEPH500C PO; +CHLO25TA PO; -DEXTROSE 50% 50 ML SYRINGE IV; +DIGO0.12 PO; +ELIQ2.5T PO; +ELIQ5TAB PO; +FISH1000 PO; +GLIM1TAB PO; +GLIM2TAB PO; -GLUCAGON FOR INJ 1 MG VIAL (J1610) SC; -GLUCOSE 4 GM CHEW TABLET PO; +LUTE10TA PO; +PRAV20TA2 PO; +PRAV40TA2 PO; +REDCAP3 PO; +SPIR-10 PO; +TRUL10IN; +TRUL10IN SC; +VITA10002 PO; +VITA500T88 PO; +VITMTA PO
== END ==
LOC: M WUC 10:14
PROVIDERS: ATTEND Physician Assistant
DX: N39.0 Urinary tract infection, site not specified (principal)

== ENCOUNTER → 2018-07-15 | Outpatient (REF) | payer MEDICARE ==
[~2018-07-15] MED LIST changes: +ASPI-1 PO; -ASPI325T PO; +ASPI81CH36 PO; -ASPI81CH40 PO
[2018-07-15 19:19] LABS: APPEARANCE, URINE HAZY (CLEAR); BACTERIA, URINE AUTO NEGATIVE (NEGATIVE); BILIRUBIN, URINE AUTO NEGATIVE (NEGATIVE); BLOOD, URINE BLOOD NEGATIVE (NEGATIVE); CALCIUM OXALATE CRYSTALS SMALL; COLOR, URINE YELLOW (YELLOW); GLUCOSE, URINE (UA) AUTO NEGATIVE (NEGATIVE); KETONE, URINE AUTO NEGATIVE (NEGATIVE); LEUKOCYTE ESTERASE, URINE AUTO 1+ (NEGATIVE); MUCUS, URINE SMALL (NEGATIVE); NITRITE, URINE AUTO NEGATIVE (NEGATIVE); PROTEIN, URINE AUTO NEGATIVE (NEGATIVE); RBC, URINE AUTO 2 /HPF (0-3); SPECIFIC GRAVITY URINE AUTO 1.015 (1.002-1.035); SQUAMOUS EPITHELIAL CELL UR AU 0 /HPF (0-6); UROBILINOGEN, URINE AUTO 0.2 mg/dL (0.0-2.0); WBC, URINE AUTO 1 /HPF (0-3)
== END ==
LOC: M SMT 17:17
PROVIDERS: ATTEND Nurse Practitioner Women's Health
DX: Z87.440 Personal history of urinary (tract) infections (principal); Z79.899 Other long term (current) drug therapy
CPT/HCPCS: 51798; 81001; 87086; G0463

== ENCOUNTER → 2018-07-22 | Outpatient (CLI) | payer MEDICARE, OTHER ==
--- NOTE | 2018-07-22 12:05 | REP ---
RENAL AND BLADDER ULTRASOUND: Real-time sonographic evaluation of kidneys performed. Kidneys are normal in size and echotexture, right kidney measuring 9.1 x 5.2 x 4.9 cm, and left kidney 9.8 x 4.2 x 3.6 cm. There is no hydronephrosis bilaterally. There is some mild caliectasis of the left upper pole calices with an adjacent some measuring 7 mm in diameter. Incidental note is made of a septated cyst in the right lobe of the liver 3.4 x 2.1 x 2.1 cm. Large gallstone is seen in the gallbladder. Urinary bladder measures 4.9 x 8.8 x 5.7 cm for a total volume of 161 mL. No mass or calculus is seen. Postvoid residual is 18 mL which is 11% of the original volume. IMPRESSION: Mild caliectasis upper pole left kidney with an adjacent 7 mm stone. Incidental note made of a septated cyst in the right lobe of the liver 3.4 cm in maximum diameter. There is a large gallstone in the gallbladder. Urinary bladder demonstrates no mass or calculus with postvoid residual 11%. Electronically Signed by Osmel Rodriguez MD 07/23/2018 10:21 A
== END ==
LOC: M RAD 09:29
PROVIDERS: ATTEND Nurse Practitioner Women's Health
DX: N20.0 Calculus of kidney (principal); K80.20 Calculus of gallbladder without cholecystitis without obstruction; Z87.440 Personal history of urinary (tract) infections

== ENCOUNTER → 2018-07-29 | Outpatient (CLI) | payer MEDICARE, OTHER ==
[2018-07-29 13:48] LABS: BLOOD UREA NITROGEN 17 MG/DL (7-18); CARBON DIOXIDE LEVEL 28 MEQ/L (21-32); CHLORIDE LEVEL 105 MEQ/L (98-107); CHOLESTEROL LEVEL 159 MG/DL (<200); CHOLESTEROL RISK RATIO 3.613 (<5); CREATININE FOR GFR 0.79 MG/DL (0.55-1.30); GLOMERULAR FILTRATION RATE > 60.0 (>32); GLUCOSE, FASTING 111 MG/DL (70-100); HDL CHOLESTEROL 44 MG/DL (>40); LDL CHOLESTEROL 78 MG/DL (<100); NON-HDL-C 115 MG/DL; POTASSIUM SERUM 4.2 MEQ/L (3.5-5.1); SODIUM LEVEL 139 MEQ/L (136-145); TRIGLYCERIDES LEVEL 186 MG/DL (<150)
[2018-07-29 14:15] LABS: HEMOGLOBIN A1c 6.2 %
== END ==
LOC: M WUC 09:02
PROVIDERS: ATTEND Physician Assistant
DX: E78.2 Mixed hyperlipidemia (principal); I11.9 Hypertensive heart disease without heart failure; I48.0 Paroxysmal atrial fibrillation; Z87.440 Personal history of urinary (tract) infections

== ENCOUNTER → 2018-08-11 | Outpatient (CLI) | payer MEDICARE, OTHER ==
--- NOTE | 2018-08-11 12:32 | REP ---
RIGHT LOWER EXTREMITY DUPLEX VEINS: HISTORY: Leg swelling. There are no filling defects in the deep venous system. The deep venous system is patent. IMPRESSION: There is no deep venous thrombosis. Electronically Signed by Cyril Urias MD 08/11/2018 12:35 P
== END ==
LOC: M RAD 10:35
PROVIDERS: ATTEND Family Medicine
DX: M79.89 Other specified soft tissue disorders (principal)

== ENCOUNTER → 2018-08-21 | Outpatient (CLI) | payer MEDICARE, OTHER ==
--- NOTE | 2018-08-21 13:00 | REP ---
Clinical: Acute knee pain Technique: AP, lateral, bilateral oblique and sunrise views. Findings: Osteopenia and generalized age-related degenerative changes are appreciated. No acute fracture or dislocation. Lateral view suggests swelling and possible effusion. Impression: Swelling and possible effusion. No acute fracture or dislocation identified. Electronically Signed by Ben Eaton MD 08/21/2018 12:51 P
== END ==
LOC: M ADAMS 11:46
PROVIDERS: ATTEND Family Medicine
DX: M25.461 Effusion, right knee (principal); M25.561 Pain in right knee
CPT/HCPCS: 73564; G0463

== ENCOUNTER → 2018-11-17 | Outpatient (REF) | payer MEDICARE, OTHER ==
[~2018-11-17] MED LIST changes: +CYAN100049 PO; -VITA10002 PO
== END ==
LOC: M WUC 12:21
PROVIDERS: ATTEND Physician Assistant
DX: N39.0 Urinary tract infection, site not specified (principal)

== ENCOUNTER 2018-12-25 21:25 | Observation (INO) | payer MEDICARE, OTHER ==
[~2018-12-25] VITALS: Ht 152.4 cm; Wt 57.6 kg
[~2018-12-25 21:25] MED LIST changes: -DIGO0.12 PO; +DIGO0.123 PO; -GLIM1TAB PO; +GLIM1TAB2 PO; -GLIM2TAB PO; +GLIM2TAB2 PO
[2018-12-25 21:53] LABS: BASO # 0.1 10^3/uL (0.0-0.2); EOS # 0.2 10^3/uL (0.0-0.5); EOS % 3.1 % (0.0-3.0); HEMATOCRIT 44.5 % (36.0-47.0); HEMOGLOBIN 14.9 g/dl (12.0-15.5); LYMPH # 1.7 10^3/uL (1.5-5.0); LYMPH % 29.5 % (24.0-44.0); MEAN CORPUSCULAR HEMOGLOBIN 29.4 pg (27.0-33.0); MEAN CORPUSCULAR HGB CONC 33.5 g/dl (32.0-36.5); MEAN CORPUSCULAR VOLUME 87.8 fl (80.0-96.0); MONO # 0.6 10^3/uL (0.0-0.8); MONO % 10.1 % (0.0-5.0); NEUTROPHILS # 3.2 10^3/uL (1.5-8.5); NEUTROPHILS % 56.1 % (36.0-66.0); PLATELET COUNT, AUTOMATED 207 10^3/uL (150-450); RED BLOOD COUNT 5.07 10^6/uL (4.00-5.40); WHITE BLOOD COUNT 5.8 10^3/uL (4.0-10.0)
[2018-12-25 22:21] LABS: BLOOD UREA NITROGEN 25 MG/DL (7-18); CALCIUM LEVEL 8.9 MG/DL (8.8-10.2); CARBON DIOXIDE LEVEL 26 MEQ/L (21-32); CHLORIDE LEVEL 105 MEQ/L (98-107); CK-MB VALUE MASS 1.7 NG/ML (<3.6); CPK CREATINE PHOSPHOKINASE 93 U/L (26-192); CREATININE FOR GFR 0.88 MG/DL (0.55-1.30); FREE T4 0.95 NG/DL (0.76-1.46); GLOMERULAR FILTRATION RATE > 60.0 (>32); GLUCOSE, FASTING 181 MG/DL (70-100); MB/CK RELATIVE INDEX 1.83 (< OR =4); POTASSIUM SERUM 4.1 MEQ/L (3.5-5.1); SODIUM LEVEL 141 MEQ/L (136-145); TROPONIN I < 0.02 NG/ML (< 0.10)
[2018-12-25 22:26] LABS: HEMOGLOBIN A1c 5.8 %
[2018-12-25] MEDS ORDERED: DIGOXIN INJ 0.5 MG/2 ML AMP (J1160) IV ONE (22:45)
--- NOTE | 2018-12-26 00:12 | ECGEPIP ---
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
[2018-12-26] MEDS ORDERED: DIGOXIN INJ 0.5 MG/2 ML AMP (J1160) IV ONE (01:30)
[2018-12-26] MEDS ORDERED: D5W/0.45% SODIUM CHLORIDE 1,000 ML IV SCH (02:11)
[2018-12-26] MEDS ORDERED: METOPROLOL 5 MG/5 ML VIAL IV SCH (02:15)
[2018-12-26] MEDS ORDERED: MOM 30ML SUSPENSION UDC PO PRN (02:15)
[2018-12-26] MEDS ORDERED: GLUCAGON FOR INJ 1 MG VIAL (J1610) SC PRN (02:15)
[2018-12-26] MEDS ORDERED: DEXTROSE 50% 50 ML SYRINGE IV PRN (02:15)
[2018-12-26] MEDS ORDERED: MAALOX 30 ML SUSP *UDC PO PRN (02:15)
[2018-12-26] MEDS ORDERED: GLUCOSE 4 GM CHEW TABLET PO PRN (02:15)
[2018-12-26] MEDS ORDERED: GLIM2TAB29 PO (02:17)
[2018-12-26] MEDS ORDERED: SPIR-10 PO (02:17)
[2018-12-26] MEDS ORDERED: CARV6.25 PO ×2 (02:17)
[2018-12-26] MEDS ORDERED: ELIQ2.5T PO (02:17)
[2018-12-26] MEDS ORDERED: AMLO5TAB6 PO (02:17)
[2018-12-26] MEDS: DOCUSATE SODIUM 100 MG CAP PO SCH ×3 (02:45→21:49)
--- NOTE | 2018-12-26 03:05 | HPEPDOC ---
General Date of Admission Dec 26, 2018 at 01:45 Date of Service: Dec 26, 2018 Other Providers CardiologistDr. Jordy Spangler. Called at 2:33 AM Attending Physician: SARAH GEIGER MD Chief Complaint The patient is a 83-year-old female admitted with a reason for visit of Atrial Fibrillation With Rvr. Timing/Duration: Changing over time Severity: Severe Associated Symptoms: Malaise History of Present Illness 83-year-old elderly female presents with her complaints of cardiac palpitations, elevated home blood glucose reading of 173, frequent, burning on urination, and as well as pressure extending from the bladder to the suprapubic region during urination, feels like shes not emptying her bladder completely. She states she usually does this at the beginning of her urinary tract infection. Shes had many childhood dating back to 1953. . He states a heart rate would not and then her blood pressure increased. So she informed her and they came to the ER at [facility] for evaluation. She has significant medical history of atrial fibrillation which she is now RVR, essential hypertension, hyperlipidemia, diabetes mellitus2, Srz-[id number], and anemia. She was cardioverted with digitalis and was subsequently given another dose of medication and experienced bradycardia to 30s , which she was asymptomatic during both cardiac events. Cardiac consult was made to Dr. Jordy Spangler in which she was notified ED, her and her age fibrillation with RVR. In reviewing patients chart, ER records conversing with patient, and her comorbidities. She will be admitted to PCU unit, continuous pulse oximetry with telemetry under hospitalist services for ongoing evaluation. Home Medications Scheduled Amlodipine Besylate (Amlodipine Besylate) 5 Mg Tablet, 5 MG PO DAILY, (Reported) TAKES AT LUNCHTIME Apixaban (Eliquis) 2.5 Mg Tablet, 2.5 MG PO BID, (Reported) Ascorbic Acid (Ascorbic Acid) 500 Mg Tab, 500 MG PO DAILY, (Reported) Carvedilol (Carvedilol) 6.25 Mg Tablet, 6.25 MG PO DAILY, (Reported) Carvedilol (Carvedilol) 6.25 Mg Tablet, 3.125 MG PO QPM, (Reported) TAKES AT 1800 Dulaglutide (Trulicity) 0.75 Mg/0.5 Ml Inj, 0.75 MG SC QWEEK, (Reported) SATURDAY Glimepiride (Glimepiride) 2 Mg Tab, 2 MG PO DAILY, (Reported) Glimepiride (Glimepiride) 2 Mg Tablet, 1 MG PO QPM, (Reported) TAKES AT 1800 Multivitamins (Thera M Plus Tablet) 1 Tab Tab, 1 TAB PO DAILY, (Reported) Pravastatin Sodium (Pravastatin Sodium) 20 Mg Tab, 20 MG PO QHS, (Reported) Spironolactone (Spironolactone) 25 Mg Tablet, 12.5 MG PO DAILY, (Reported) Allergies Coded Allergies: lisinopril (Verified Adverse Reaction, Intermediate, cough, 12/25/18) Past Medical History Medical History See HPI Surgical History Appendectomy during childhood Family History Significant Family History: No pertinent family hx Social History * Smoker: Denies Alcohol: rarely Drugs: prescription drugs Psychosocial History: Connor SI and HI A-FIB/CHADSVASC A-FIB History Current/History of A-Fib/PAF?: Yes Current PO Anticoag Therapy: Yes Age/Risk Factor Scoring CHADSVASC: CHADSVASC Response (Comments) Value Age Risk Factor Age >/= 75 years old 2 Gender Risk Factor Female 1 Hx of CHF No 0 Hx of HTN Yes 1 Hx of Stroke/TIA/or VTE Yes 2 Hx of Diabetes Yes 1 Hx of Vascular Disease No 0 Total 7 Treatment Treatment ordered: Apixaban Reason Anticoagulant not given: Recent/upcomin procedure Review of Systems Constitutional: Reports: Fatigue Eyes: Denies: Pain, Vision change, Conjunctivae inflammation, Eyelid inflammation, Redness, Other ENT: Denies: Head Aches, Ear Pain, Dysphagia, Sinus Congestion, Post Nasal Dr ip, Sore Throat, Epistaxis, Other Symptoms Skin: Denies: Rash, Lesions, Jaundice, Bruising, Itching, Dry, Breakdown, Nail Changes, Other Pulmonary: Denies: Dyspnea, Cough, Pleuritic Chest Pain, Other Symptoms Cardiovascular: Reports: Palpitations, Orthopnea Gastrointestinal: Denies: Nausea, Vomiting, Abdominal Pain, Diarrhea, Constipation, Melena, Hematochezia, Other Symptoms Genitourinary: Reports: Dysuria, Frequency, Other Symptoms (burning on urination, the urge to urinate and only dribbles uses a start of her urinary tract infection plus pressure suprapubic and bladder) Hematologic: Reports: Bruising (on blood thinner), Bleeding Excessively Endocrine: Reports: Polyuria, Other Endocrine Sx (increased blood sugar) Musculoskeletal: Denies: Neck Pain, Back Pain, Shoulder Pain, Arm Pain, Hand Pain, Leg Pain, Foot Pain, Joint Pain, Muscle Pain, Spasms, Other Symptoms Neurological: Denies: Weakness, Numbness, Incoordination, Change in speech, Confusion, Seizures, Other Symptoms Psych: Reports: Anxiety Physical Examination General Exam: Positive: Alert, Cooperative, No Acute Distress Eye Exam: Positive: PERRLA, Conjunctiva & lids normal, EOMI ENT Exam: Positive: Atraumatic, Mucous membr. moist/pink, Pharynx Normal, Tongue Midline, Nares Patent Neck Exam: Positive: Supple, +2 carotid pulse wo bruit Chest Exam: Positive: Clear to auscultation, Normal air movement Heart Exam: Positive: Regular Rhythm, Irregular Rhythm, Normal S1 Telemetry: Positive: Atrial fibrillation (with RVR then cardioverted ), Bradycardia (30-50 on cardiac monitor) Abdomen Exam: Positive: Normal bowel sounds, Soft, Tenderness ( hypogastric to palpation) Extremity Exam: Positive: Normal pulses Skin Exam: Positive: Nl turgor and temperature Neuro Exam: Positive: Normal Speech, Strength at 5/5 X4 ext, Cranial Nerves 3- 12 NL Psych Exam: Positive: Mental status NL, Oriented x 3, Other ( Mild nervousness when informed of plan for pacemaker which is understandable) Vital Signs Vital Signs Date Time Temp Pulse Resp B/P (MAP) Pulse Ox O2 Delivery O2 Flow Rate FiO2 12/26/18 01:44 92 12/26/18 01:43 16 104/69 (81) 96 Room Air 12/25/18 21:45 97.8 Laboratory Data Labs 24H Laboratory Tests 2 12/25/18 21:40: Immature Granulocyte % (Auto) 0.2, White Blood Count 5.8, Red Blood Count 5.07, Hemoglobin 14.9, Hematocrit 44.5, Mean Corpuscular Volume 87.8, Mean Corpuscular Hemoglobin 29.4, Mean Corpuscular Hemoglobin Concent 33.5, Red Cell Distribution Width 13.3, Platelet Count 207, Neutrophils (%) (Auto) 56.1, Lymphocytes (%) (Auto) 29.5, Monocytes (%) (Auto) 10.1H, Eosinophils (%) (Auto) 3.1H, Basophils (%) (Auto) 1.0, Neutrophils # (Auto) 3.2, Lymphocytes # (Auto) 1.7, Monocytes # (Auto) 0.6, Eosinophils # (Auto) 0.2, Basophils # (Auto) 0.1, Nucleated Red Blood Cells % (auto) 0.0, Anion Gap 10, Glomerular Filtration Rate > 60.0, Estimated Mean Plasma Glucose 120H, Hemoglobin A1c 5.8, Blood Urea Nitrogen 25H, Creatinine 0.88, Sodium Level 141, Potassium Level 4.1, Chloride Level 105, Carbon Dioxide Level 26, Calcium Level 8.9, Total Creatine Kinase 93, Creatine Kinase MB 1.7, Creatine Kinase MB Relative Index 1.83, Troponin I < 0.02, Thyroid Stimulating Hormone (TSH) 3.640, Free Thyroxine 0.95 12/25/18 22:18: Urine Color COLORLESS, Urine Appearance CLEAR, Urine pH 7.0, Urine Specific [place] 1.006, Urine Protein NEGATIVE, Urine Glucose (UA) NEGATIVE, Urine Ketones NEGATIVE, Urine Blood NEGATIVE, Urine Nitrite NEGATIVE, Urine Bilirubin NEGATIVE, Urine Urobilinogen 0.2, Urine Leukocyte Esterase 1+H, Urine WBC (Auto) 5H, Urine RBC (Auto) 1, Urine Hyaline Casts (Auto) 0, Urine Bacteria (Auto) NEGATIVE, Urine Squamous Epithelial Cells 0, Urine Sperm (Auto) CBC/BMP Laboratory Tests 12/25/18 21:40 Red Blood Count 5.07, Mean Corpuscular Volume 87.8, Mean Corpuscular Hemoglobin 29.4, Mean Corpuscular Hemoglobin Concent 33.5, Red Cell Distribution Width 13.3, Neutrophils (%) (Auto) 56.1, Lymphocytes (%) (Auto) 29.5, Monocytes (%) (Auto) 10.1 H, Eosinophils (%) (Auto) 3.1 H, Basophils (%) (Auto) 1.0, Neutrophils # (Auto) 3.2, Lymphocytes # (Auto) 1.7, Monocytes # (Auto) 0.6, Eosinophils # (Auto) 0.2, Basophils # (Auto) 0.1, Calcium Level 8.9, Total Creatine Kinase 93 Microbiology Microbiology 12/25/18 Urine Culture, Received Pending Assessment/Plan 83-year-old elderly female presents with her complaints of cardiac palpitations, elevated home blood glucose reading of 173, frequent, burning on urination, and as well as pressure extending from the bladder to the suprapubic region during urination, feels like shes not emptying her bladder completely. She states she usually does this at the beginning of her urinary tract infection. Atrial fibrillation with RVRacute on chronic Plan [facility] SCORE [address] Dr. Jordy Spangler Consult/manage-; Consult/manage A. fib with RVR. Patient cardioverted and is not having long pauses rate 28-40, asymptomatic. Dr. Spangler will place patient in the morning. She is nothing by mouth and Eliquis is on hold. Paged Dr. Spangler and left messaged at 2:41 AM on a #[phone] as no one answered the phone. Clinical Data message sent to Cardiology partner Dr. Randy Segal @[phone]. Dr. Spangler return phone call that approximate to [phone] with surgical plan: will place pacemaker later on today. Nothing by mouth no oral medications, patient is to go for pacemaker in the morning or afternoon per Dr. Spangler IV fluids D5 and half normal saline 100 mL an hour (patient diabetic) Monitor vital signs, weight daily, type and cross screen, PT/INR, cardiac profile, phosphorus, free T4, TSH, CBC, cardiac profile every 6 hours 3, troponin is trending, Metoprolol tartrate 5 mg IV every 5 minutes 3 doses hold for heart rate less than 60 bpm, and systolic blood pressure less than 100 After pacemaker continue taking Eliquis 2.5 mg by mouth twice a day as changed by Dr. Spangler. Cardiology Patient may continue taking supplements: Multivitamin with iron one a day, vitamin C 500 mg 1 tablet by mouth daily Dysuriaacute IV antibiotics, ceftriaxone 1 g 1 dose. Patient states she doesn't UTI. Feels like this is how she starts with a UTI. Essential hypertensionchronic Continue taking carvedilol 6.25 mg by mouth every morning; carvedilol 3.125 mg by mouth daily at bedtime; Aldactone 12.5 mg by mouth daily; Norvasc 5 mg by mouth daily Diabetes mellitus2 [id number] Check hemoglobin A1c. Glucose check POC before meals at bedtime Continue taking glimepiride 1 mg by mouth daily at bedtime; glimepiride 2 mg by mouth every morning Sliding-scale insulin ordered before meals at bedtime; hypoglycemia Medications ordered as when necessary per [facility] protocol Patient may use home medication Trulicity 0.75 g subcutaneous weekly Hyperlipidemiachronic Fasting, lipid panel Continue taking pravastatin 20 mg by mouth daily at bedtime Prognosis: Good DVT prophylaxis: SCDs bilateral lower extremities, alternating with the MELISSA hose. Once pacemaker procedures over and manager support services approves she will re- start taking anti-coagulant Eliquis 2.5 mg po BID Patient will be taken Eliquis 2.5 mg by mouth twice a day. Discharge: Pending Problems (1) Atrial fibrillation with RVR Status: Acute Response to Treatment: Uncontrolled Discussed With: Design Assembler (Jordy Muhammad, manager support services), Patient Problem Specific Plan: Consult Specialist, Monitor Clinically, Repeat Labs Plan / VTE VTE Prophylaxis Ordered?: Yes VTE Exclusion Mechanical Proph: N/A:VTE Prophy Ordered VTE Exclusion Pharmacological: Bleeding Risk (pacemaker plan for later this morning or this afternoon by manager support services Dr. Spangler) Plan IVF: Initiate Diet: Make NPO Activity: Bedrest Therapy: PT, OT Medications: Change to IV, Replete Electrolytes IV, Start Antibiotics Respiratory: Pulse Ox on Room Air Diagnostics: Check Labs, Xrays ALYSSIA RAYO Dec 26, 2018 03:05 SARAH GEIGER MD Dec 27, 2018 07:18
[2018-12-26 03:55] LABS: CK-MB VALUE MASS 1.2 NG/ML (<3.6); CPK CREATINE PHOSPHOKINASE 83 U/L (26-192); FREE T4 1.01 NG/DL (0.76-1.46); MB/CK RELATIVE INDEX 1.45 (< OR =4); PHOSPHORUS LEVEL 3.7 MG/DL (2.5-4.9); TROPONIN I < 0.02 NG/ML (< 0.10)
[2018-12-26] MEDS ORDERED: cefTRIAXone SOD 1 GM in D5W MINI-BAG PLUS 50 ML IV ONE (05:00)
[2018-12-26] MEDS: HumaLOG INSULIN (NovoLOG) PER UNIT SC SCH ×3 (07:30→17:30)
--- NOTE | 2018-12-26 07:48 | REP ---
Portable chest, 09:54 p.m., single AP view with the patient sitting: Comparison is 01/21/2018. Lung flowers are clear. Cardiac size is mildly enlarged, however there has magnification from portable positioning. The lawrence, mediastinum, skeletal structures are unremarkable. The prior study there was a large calculus in the abdominal right upper quadrant, likely a gallbladder calculus. This is excluded at the inferior film margin on the current study. Impression: Mild cardiomegaly, otherwise negative portable chest. Electronically Signed by Osmel Lara MD 12/26/2018 07:39 A
[2018-12-26 08:11] LABS: CK-MB VALUE MASS < 1.0 NG/ML (<3.6); CPK CREATINE PHOSPHOKINASE 52 U/L (26-192); MB/CK RELATIVE INDEX 1.92 (< OR =4); TROPONIN I < 0.02 NG/ML (< 0.10)
[2018-12-26] MEDS: ASCORBIC ACID 500 MG TAB PO SCH (09:00)
[2018-12-26] MEDS ORDERED: CARVedilol 6.25 MG TAB PO SCH ×2 (09:00→18:00)
[2018-12-26] MEDS: SPIRONOLACTONE 25 MG TAB PO SCH (09:00)
[2018-12-26] MEDS ORDERED: GLIMEPIRIDE 2 MG TAB PO SCH ×2 (09:00→18:00)
[2018-12-26] MEDS: MULTIVITAMINS/MINERALS THERAP 1 TAB PO SCH (09:38)
--- NOTE | 2018-12-26 09:52 | IPN ---
DATE: 12/26/2018 Terrence was seen in interim bed emergency room (ER) atrial fibrillation with rapid ventricular response converted back to sinus rhythm. She has bradycardic episodes down to the 20s for the last several hours. Heart rate has been 50-60. No chest pain or shortness of breath. She has remained symptomatic during this. PHYSICAL EXAM: 118/58, pulse 50. General appearance: Alert, conversant, no distress. Lungs: Clear. Heart: Regular rate and rhythm. Abdomen: Soft, nontender. No peripheral edema. Good pulses. LABS: Troponins are flat. Blood sugars have been around 100-150. For some reason hemoglobin A1c was done (typically outpatient test) showed the same results we had earlier in the ER. IMPRESSION: 1. Atrial fibrillation with rapid ventricular response converted to sinus rhythm. She is on Eliquis, which is on hold for pacemaker. 2. Sinus bradycardia after converting from atrial fibrillation. Pacemaker planned by Dr. Spangler today. Eliquis on hold. 3. Diabetes. Stopping her glimepiride while patient is on an a forced hospital diet to avoid hypoglycemia. Restart this upon discharge. Sliding scale insulin for now. 4. Hypertension. Blood pressure well controlled on current regimen.
[2018-12-26] MEDS ORDERED: dexameTHASONE 4 MG/ML 1ML VIAL (J1100) As Ordered ONE ×2 (10:29→11:12)
[2018-12-26] MEDS ORDERED: LIDOCAINE 2% INJ 100 MG/5 ML SDV (FOR ANES.) As Ordered ONE (10:29)
[2018-12-26] MEDS ORDERED: ONDANSETRON 4MG/2ML VIAL (J2405) As Ordered ONE ×2 (10:29→11:12)
[2018-12-26] MEDS ORDERED: fentaNYL 100 MCG/2 ML INJECTION (J3010) As Ordered ONE (10:29)
[2018-12-26] MEDS ORDERED: MIDAZOLAM INJ 2 MG/2 ML VIAL (J2250) As Ordered ONE ×2 (10:29→11:13)
[2018-12-26] MEDS ORDERED: LIDOCAINE 1% SDV INJ 30 ML VIAL As Ordered ONE (10:45)
--- NOTE | 2018-12-26 10:52 | CR ---
CARDIOLOGY CONSULTATION: DATE OF CONSULTATION: 12/26/2018 REFERRING PHYSICIAN: RICARDO Dickerson INDICATION: Tachy-anna syndrome. HISTORY: This 83-year-old mother of five grown children, resident of [place], [place] is known to my cardiology practice with history of hypertension, abnormal EKG, and paroxysmal atrial fibrillation likely dating back to 2014. This is her third admission for paroxysmal atrial fibrillation and rapid ventricular response the last being December 2017. She came to the emergency room at approximately 9:25 p.m. yesterday having sustained palpitations with slight lightheadedness beginning at 8 p.m. Home recorded heart rate was up to 135 bpm and initial vital signs at [facility] showed a heart rate of 136 with blood pressure 134/95, respiratory 20, oxygen saturation 96%, and she was afebrile. She was evaluated by Dr. Wei Mahmood who observed her heart rate would vary from the 90s to up to as high as 150 beats per minute. She was given a dose of digoxin 0.25 mg IV at 10:35 p.m. with heart rate documented at 134 bpm. A second dose was administered at 1:24 a.m. this morning with heart rate at the time still varying between 100-120 beats per minute. She subsequently converted to a sinus rhythm with initial rates in the 20s according to Dr. Warren who contacted me at approximately 3:20 a.m. She was being admitted to the hospitalist service and official cardiology consultation was requested. I recommended that she be kept NPO for permanent dual-chamber pacemaker implant later today. OTHER PAST CARDIAC DISEASE/EVENTS/TESTS: 2015 Following suspected first bout of atrial fibrillation with lightheadedness with abnormal EKG underwent a nuclear stress study at [facility], [place], with favorable findings. Probable second bout of sustained atrial fibrillation with rapid ventricular response 01/21/2018 EKG ventricular rate [address]/T wave abnormalities. Chest x-ray showed normal heart size and pulmonary vasculature. Echocardiogram 01/22/2018 showed underlying atrial fibrillation with rapid ventricular response but normal LV size, wall thickness and hyperkinetic wall motion. Left atrium was mildly enlarged with normal estimated mean left atrial pressure. Normal RV size and motion with mild pulmonary hypertension. Mild right atrial enlargement but frankie inferior vena cava (IVC) size and collapse. Normal aortic measurements with mild aortic valvular sclerosis and mild aortic insufficiency. Moderate mitral annular calcification with mild mitral insufficiency. Normal tricuspid valve with mild to moderate tricuspid insufficiency but no pericardial effusion. Required a combination of low-dose carvedilol and digoxin with rate at the time of discharge in the 80s. She was referred to our office as an outpatient 02/18/18 and was shown to have sinus mechanism, sinus bradycardia. Digoxin was discontinued. 03/18, 5-day patch Holter study showed sinus rhythm varying between 45-113 bpm averaging 63 bpm. No significant bradyarrhythmia or atrioventricular (AV) block. Only an average of 4 premature atrial contractions (PACs) per hour, 8 nonsustained atrial runs(longest six beats fast as 156 bpm) and 17 premature ventricular contractions (PVCs) per hour. No reported symptoms. Last seen in my office 08/01/2018 and claims to have been doing well denying cardiovascular complaint. Previously prescribed spironolactone was discontinued by the patient but remained on Eliquis and carvedilol with amlodipine and pravastatin. Heart rate 52 bpm and regular, blood pressure sitting 142/78, body mass index (BMI) 24.8. No signs of congestion. EKG showing sinus bradycardia at 52 bpm with left atrial conduction disturbance and nonspecific ST/T wave abnormalities. No PVCs when compared with prior tracing 02/18/2018. The patient claims that she has continued to feel well doing her own housework including vacuuming, climbing stairs and doing her shopping without chest discomfort. Ultimate effort limiting symptom would be fatigue. Has never had any problems with chest, jaw or arm discomforts with effort. Denies shortness of breath. Does admit to intermittent momentary lightheadedness even in the sitting position but has not fallen. No history of lateralizing neurological deficits or claudication. No lower leg swelling. CORONARY RISK FACTORS: Advanced age. Non-insulin dependent diabetes mellitus, prior obesity. Hypercholesterolemia, hypertension, and hyperlipidemia. Was never a smoker. OTHER PAST MEDICAL/SURGICAL HISTORY: Five normal vaginal deliveries. Remote appendectomy. Nasal surgery for basal cell carcinoma recently. Prior urinary tract infections. Vitamin D deficiency. REVIEW OF SYSTEMS: Denies any fever, chills or weight loss. Wears corrective lenses. History of tinnitus but no hearing problems. Denies any change in appetite, difficulty swallowing, abdominal pain, change in bowel movements or gastrointestinal (GI) bleeding on her anticoagulant therapy. No recent dysuria or hematuria. Does have low back pain with effort but no other musculoskeletal complaints. All other systems review is negative. MEDICATIONS: At home she was taking: - carvedilol 6.25 mg every morning and 3.125 mg nightly - Eliquis 2.5 mg twice a day - pravastatin 20 mg nightly - amlodipine 5 mg daily - vitamin C 250 mg daily - glipizide 2 mg every morning and 1 mg every evening - One A Day vitamin - Trulicity 0.75 mg per 0.5 mL, 0.5 mL once weekly as directed ALLERGIES: LISINOPRIL (cough), METFORMIN (diarrhea). PHYSICAL EXAMINATION: CONSTITUTIONAL: Pleasant, elderly lady of medium body build lay comfortably with the head of bed elevated 30 degrees. Slight pallor. VITAL SIGNS: Heart rate 56 bpm and regular with occasional irregularity, blood pressure 147/78 supine, respiratory rate 16, oxygen saturation 98% on room air. Weight 127 pounds, height 60 inches, BMI 24.8. EYES: No conjunctival pallor or icterus. No xanthelasma. ENT: Healed skin flap on her nose from recent basal cell carcinoma excisional biopsy. Edentulous with upper and lower dentures. Normal oral moisture. No central cyanosis. NECK: Trachea midline. Thyroid not enlarged. Jugular veins were at the level of the sternal angle. RESPIRATORY: Normal-appearing chest configuration and chest expansion. Well-healed right subclavian incision site of her skin flap for her nose. Good air entry over both lung flowers with no abnormal adventitious sounds. CARDIOVASCULAR SYSTEM: Apical impulse at the mid line fifth costal space. S1 normal. S2 slightly increased with audible S2 splitting with respiration. S4 gallop but no S3 gallop. Soft apical systolic murmur. Normal carotid upstrokes and volume with no bruits. Abdominal aorta was not palpable. No bruits. Femoral and pedal pulses were symmetrical and normal. No dependent edema. No varicose veins. EXTREMITIES: No clubbing, peripheral cyanosis or splinter hemorrhages. GI: Soft, nontender abdomen with no hepatosplenomegaly. Normal bowel sounds. Rectal examination not indicated. MUSCULOSKELETAL: No obvious joint deformities. Normal-appearing muscular strength and tone. Normal spine curvature. NEURO/PSYCH: Bright, alert and oriented. Gave a lucid history. Eye, facial, and extremity wounds were normal as mentioned. No involuntary movements. SKIN: Slightly pale but no icterus or other skin lesions beyond her nose surgery. LABORATORY DATA: Hemoglobin of 14.9. Normal white blood cell count and platelet count. Electrolytes were normal with potassium 4.1, BUN slightly elevated at 25, creatinine 0.9, random glucose 181 with fasting glucose this morning 145 (on IV dextrose and one-half normal saline at 100 mL/h). Serum calcium 8.9. Serial Troponin I levels were negative. Ultra sensitive TSH was normal at 3.6 with free T4 of 0.95. CHEST X-RAY: Reviewed independently shows at least borderline cardiomegaly with slightly unfolded thoracic aorta. Slightly prominent pulmonary vasculature but no interstitial edema or pleural effusion. EKG: Study performed last evening at 9:53 p.m. showed atrial fibrillation with controlled ventricular response at 93 bpm. Isolated PVC. Somewhat prominent precordial voltages with strain pattern suggestive of LVH. Minuscule inferior Q waves but tracing not dramatically changed from 01/22/2018. IMPRESSION/PLAN: 1. Tachy-anna syndrome: Continues to have paroxysms of atrial fibrillation with rapid ventricular response despite her low-dose carvedilol alone with her rapid rates has noticed lightheadedness but no chest pain. Attempts to slow her ventricular response with digoxin only lead to conversion with markedly slow heart rates (curiously none of the strips were saved). We have well documented sinus bradycardia in the past. There is no doubt she has sinus node dysfunction and requires implantation of permanent dual-chamber pacemaker in order to allow safe administration of additional negative chronotropic therapy to control ventricular responses for future potential bouts of atrial tachyarrhythmia. The indication, procedure and risks were discussed with the patient in detail who appears to understand and agree. We will arrange for this procedure to be performed later today. 2. Paroxysmal atrial fibrillation: Believed to be on the basis of her age, hypertension and possibly her mitral insufficiency. As mentioned has had recurrent bouts associated with lightheadedness since 2015. For the time being her medications are on hold, including Eliquis, until her permanent pacemaker is implanted. Ultra sensitive TSH shows no sign of thyroid dysfunction. 3. Abnormal EKG: Despite her coronary risk factors and abnormal EKG has had no symptoms of myocardial ischemia. Prior stress test showed a favorable coronary prognosis. Serial cardiac enzymes here have been negative. We hope to continue the patient on protective combination carvedilol, perhaps low-dose losartan and low-dose spirolactone (all of which have been shown to protect her from vascular events, consequences of hypertension and reduce her risk of further atrial tachyarrhythmias). 4. Hypertensive heart disease (benign without heart failure): Has no symptoms or signs of congestion despite documented left ventricular diastolic dysfunction. Current blood pressure is adequately controlled and I am convinced we will be able to do as well with combination carvedilol, losartan and low-dose spirolactone. Electrolytes are in balance and renal function is normal. 5. Mitral and aortic valve disorder (non-rheumatic): Recent echocardiogram has shown mild to moderate degenerative changes of both of these valvular structures with mild insufficiency of each. No symptoms or signs of endocarditis. I have discussed the above plan with the patient as well as Dr. Cruz. We plan to proceed with implantation of permanent dual-chamber pacemaker under monitored local anesthesia later today. SAGE
[2018-12-26] MEDS ORDERED: PROPOFOL 500 MG/50 ML VIAL As Ordered ONE (11:10)
[2018-12-26] MEDS ORDERED: KETAMINE HCL 200 MG/20 ML VIAL As Ordered ONE (11:11)
[2018-12-26] MEDS ORDERED: amLODIPine 5 MG TAB PO SCH (12:00)
[2018-12-26] MEDS ORDERED: ISOVUE-300 61% 50ML VIAL (Q9967) As Ordered ONE (12:14)
[2018-12-26] MEDS ORDERED: ceFAZolin 2 GM/D5W 50 ML IV BAG (J0690 PER 500MG) As Ordered ONE (12:28)
[2018-12-26] MEDS ORDERED: ceFAZolin SOD 2 GM in IV 1 EA IV ONE (12:30)
[2018-12-26] MEDS ORDERED: AMIODARONE HCL 150 MG/100 ML PREMIXED BAG (NEXTERONE) (J0282 PER 30MG) As Ordered ONE (12:46)
[2018-12-26] MEDS ORDERED: ACETAMINOPHEN TAB 650MG DOSE (2X325MG) PO PRN (14:15)
--- NOTE | 2018-12-26 14:29 | REP ---
Portable chest post pacemaker insertion, 02:07 p.m., single AP view with the patient upright: Comparison is the portable chest performed earlier today. There is a dual-chamber pacemaker entering from left with the tips in satisfactory positions. There is no pneumothorax or pleural fluid collection. There are skin lorena adjacent to the pacemaker power pack. Lung flowers otherwise clear. Cardiac size is enlarged, unchanged. The lawrence, mediastinum, skeletal structures are unremarkable. Impression: Interim pacemaker placement. No pneumothorax or pleural fluid collection. There is a large calculus in the abdominal right upper quadrant, likely a gallbladder calculus. Electronically Signed by Osmel Lara MD 12/26/2018 02:20 P
[2018-12-26] MEDS ORDERED: oxyCODONE 5MG TAB PO PRN (14:30)
[2018-12-26] MEDS ORDERED: LR 1,000 ML IV SCH (14:30)
[2018-12-26] MEDS ORDERED: ONDANSETRON 4MG/2ML VIAL (J2405) IV PRN (14:30)
[2018-12-26] MEDS ORDERED: METOCLOPRAMIDE INJ 10MG/2ML VIAL (J2765) IV PRN (14:30)
[2018-12-26] MEDS ORDERED: fentaNYL 100 MCG/2 ML INJECTION (J3010) IV PRN (14:30)
[2018-12-26 15:00] VITALS: BP 197/84
[2018-12-26] MEDS: LOSARTAN 25 MG TAB PO SCH (15:13)
[2018-12-26] MEDS: CARVedilol 6.25 MG TAB PO SCH ×2 (15:13→21:51)
--- NOTE | 2018-12-26 15:43 | RO ---
DATE OF PROCEDURE: 12/26/2018 TITLE OF PROCEDURE: Implantation of permanent dual-chamber pacemaker. IMPLANTING AIRBORNE MISSIONS SYSTEMS: Dr. Jordy Spangler ANESTHESIOLOGIST: Dr. He. PREOPERATIVE DIAGNOSES: 1. Tachy-anna syndrome. 2. Paroxysmal atrial fibrillation with rapid ventricular response. POSTOPERATIVE DIAGNOSES: 1. Tachy-anna syndrome. 2. Paroxysmal atrial fibrillation with rapid ventricular response. TYPE OF ANESTHESIA: Monitored local anesthesia. DESCRIPTION OF PROCEDURE: In the fasting state following informed consent and Ancef 2 grams IV premedication, the patient was taken to the operating theater. Numerous skin electrodes were applied to facilitate continuous electrocardiographic monitoring. Self-adhesive cardioverting/defibrillating pads were also applied in anteroposterior configuration and connected to a bedside cardioverter defibrillator. The left subclavian region was prepped and draped in the usual fashion and the skin was infiltrated with 1% Xylocaine. The left axillary vein was catheterized using the micropuncture technique and a 5 cm linear incision was made several centimeters below and parallel to the left clavicle. Dissection was then carried down to the level of the pectoralis fascia and the pocket was fashioned below the level of the incision line. Two bipolar screw-in active fixation steroid eluding pacing leads were then positioned to the distal right ventricular septum and the anterior right atrial free wall under fluoroscopic electrocardiographic control. The right ventricular lead ([employer] model number [id number], serial number [id number]) measurements were: Stimulation threshold 0.5 V/0.4 ms/impedance 583 ohms. The capital R wave amplitude measured 5.8 mV. The atrial lead ([employer] model number [id number], serial number [id number]) measurements were: Stimulation threshold 0.8 V pulse with 0.4 ms/impedance 427 ohms. The capital P separate wave amplitude measured 4.2 mV. These leads were secured in position with sleeves sutured at the insertion site. They were then connected to a MRI compatible dual-chamber pulse generator ([employer] [facility] model number [id number], serial number [id number]) and appropriate DDD pacing was documented. The pulse generator was placed in the pocket and secured in position with a suture through the upper right-hand corner of the epoxy header. The subcutaneous tissues were approximated using a running chromic suture and the skin was closed using lorena. Dressing was applied. The patient was returned to recovery in good condition. No apparent complications. Estimated blood loss less than 25 mL. Postoperative portable upright chest x-ray showed good lead position with no pneumothorax. EKG postoperatively showed consistent atrially paced rhythm with spontaneous AV conduction and narrow QRS complexes. ST/T wave abnormalities actually appeared less than earlier today. At this point, she will be monitored on telemetry overnight and will receive an additional three doses of Ancef IV every 8 hours. We will also now start her on increased dose of carvedilol 6.25 mg twice a day with low-dose flecainide 50 mg twice a day. Her amlodipine has been replaced by a higher dose of carvedilol and low-dose losartan. I will continue on low-dose spironolactone. Her Eliquis oral anticoagulation will be resumed after 24 hours. We anticipate she will be able to be discharged tomorrow morning.
[2018-12-26 16:00] VITALS: BP 170/87; O2SAT 96
[2018-12-26] MEDS ORDERED: SLF 3 ML SYR IV PRN (16:00)
[2018-12-26 17:00] VITALS: BP 160/47; O2SAT 95
[2018-12-26 18:00] VITALS: O2SAT 95
[2018-12-26 20:00] VITALS: BP 152/80; O2SAT 95
[2018-12-26] MEDS ORDERED: PRAVASTATIN 20 MG TAB PO SCH (21:00)
[2018-12-26] MEDS ORDERED: HumaLOG INSULIN (NovoLOG) PER UNIT SC SCH (21:00)
[2018-12-26] MEDS ORDERED: ceFAZolin SOD 1 GM in D5W MINI-BAG PLUS 50 ML IV SCH (21:00)
--- NOTE | 2018-12-26 21:20 | ECGEPIP ---
[facility] Test Date: 2018-12-26 Pat Name: MONTY LAGUNA Department: Room: 01[facility] Gender: Female [employer] Lab Technician: Roxann Palacios : 1935 Requested By: Jordy Spangler Order Number: [id number] Reading MD: Trey Dowell Measurements Intervals [place] Rate: 60 P: -77 [place]: 178 QRS: 18 QRSD: 92 T: -60 QT: 412 QTc: 412 Interpretive Statements Atrial pacing with ventricular tracking Nonspecific ST-T wave abnormalities Compared to prior tracing of 12/25/2018, atrial fibrillation has resolved and pacemaker activity is new Electronically Signed on 12-26-2018 21:19:53 EDT by Trey Dowell
[2018-12-26] MEDS: FLECAINIDE 50MG TABLET PO SCH (21:56)
[2018-12-26] MEDS: SLF 3 ML SYR IV SCH (22:00)
[2018-12-27] VITALS (9 sets, daily range): BP systolic 145–158; BP diastolic 69–71; O2SAT 92–98
[2018-12-27 05:52] LABS: HEMATOCRIT 42.7 % (36.0-47.0); HEMOGLOBIN 14.1 g/dl (12.0-15.5); MEAN CORPUSCULAR VOLUME 87.7 fl (80.0-96.0); PLATELET COUNT, AUTOMATED 178 10^3/uL (150-450); RED BLOOD COUNT 4.87 10^6/uL (4.00-5.40); WHITE BLOOD COUNT 10.3 10^3/uL (4.0-10.0)
[2018-12-27 06:30] LABS: ALBUMIN 3.3 GM/DL (3.2-5.2); ALT/SGPT 20 U/L (12-78); BILIRUBIN,TOTAL 0.4 MG/DL (0.2-1.0); BLOOD UREA NITROGEN 20 MG/DL (7-18); CALCIUM LEVEL 8.7 MG/DL (8.8-10.2); CARBON DIOXIDE LEVEL 24 MEQ/L (21-32); CHLORIDE LEVEL 106 MEQ/L (98-107); GLOMERULAR FILTRATION RATE > 60.0 (>32); GLUCOSE, FASTING 172 MG/DL (70-100); SODIUM LEVEL 138 MEQ/L (136-145); TOTAL PROTEIN 6.8 GM/DL (6.4-8.2)
[2018-12-27] MEDS: SLF 3 ML SYR IV SCH (06:39)
[2018-12-27] MEDS: HumaLOG INSULIN (NovoLOG) PER UNIT SC SCH ×2 (07:30→12:00)
--- NOTE | 2018-12-27 08:54 | ECGEPIP ---
[facility] Test Date: 2018-12-27 Pat Name: MONTY LAGUNA Department: Room: B2053-94 Gender: Female Lehr Stripper: HYUN : 1935 Requested By: Jordy Spangler Order Number: [id number] Reading MD: Trey Dowell Measurements Intervals [place] Rate: 60 P: 224 MO: 189 QRS: 15 QRSD: 90 T: 0 QT: 397 QTc: 397 Interpretive Statements Atrial pacing with ventricular tracking Nonspecific ST-T wave abnormalities No significant change when compared to prior tracing of 12/26/2018 Electronically Signed on 12-27-2018 8:54:16 EDT by Trey Dowell
[2018-12-27] MEDS ORDERED: FLUBLOK(EGG FREE)(QUAD)INFLUENZA VACC 0.5ML SYRINGE (90682)18YRS&OLDER IM ONE (09:00)
[2018-12-27] MEDS ORDERED: diltiaZEM **CD** 180 MG CAP PO SCH (09:00)
[2018-12-27] MEDS: DOCUSATE SODIUM 100 MG CAP PO SCH (09:00)
[2018-12-27] MEDS ORDERED: APIXABAN 2.5 MG TAB (ELIQUIS) PO SCH (09:00)
[2018-12-27] MEDS: LOSARTAN 25 MG TAB PO SCH (09:01)
[2018-12-27] MEDS: MULTIVITAMINS/MINERALS THERAP 1 TAB PO SCH (09:01)
[2018-12-27] MEDS: FLECAINIDE 50MG TABLET PO SCH (09:02)
[2018-12-27] MEDS: CARVedilol 6.25 MG TAB PO SCH (09:02)
[2018-12-27] MEDS: SPIRONOLACTONE 25 MG TAB PO SCH (09:02)
[2018-12-27] MEDS: ASCORBIC ACID 500 MG TAB PO SCH (09:02)
[2018-12-27] MEDS ORDERED: PILL CUTTER 1 EACH XX PRN (09:15)
--- NOTE | 2018-12-27 10:35 | REP ---
PA AND LATERAL CHEST: 12/27/2018. Comparison: AP portable chest 12/26/2018, 12/25/2018. Clinical history: Post pacer implant. Findings: Skin lorena overlie the new pacemaker in the left anterior upper chest wall. Dual leads are seen terminating in the right atrium and right ventricle. There is no left effusion or pneumothorax. There is no infiltrate. No definite atelectasis. The heart, mediastinal and hilar contours unchanged. Aorta mildly tortuous and calcified at the arch without aneurysm. Airway intact. Bones unremarkable. The right upper quadrant stone within the gallbladder region, previously noted as incidental finding on a renal ultrasound. Impression: 1. New dual lead pacer over the left upper chest with leads terminating in the right atrium and right ventricle. No left effusion or pneumothorax. No other new or acute finding. Electronically Signed by Omega Pimentel MD 12/27/2018 07:32 P
[2018-12-27] MEDS ORDERED: FLEC25TA PO (12:46)
[2018-12-27] MEDS ORDERED: CARD180C4 PO (12:46)
[2018-12-27] MEDS ORDERED: COZA1TAB PO (12:46)
[2018-12-27] MEDS ORDERED: CARV6.25 PO (12:46)
--- NOTE | 2018-12-27 14:15 | IPN ---
DATE: 12/27/2018 TIME: 11:05 a.m. SUBJECTIVE: The patient reports some mild pain at the incision site where her pacemaker was implanted. Other than that, she is feeling entirely well. No exertional shortness of breath ambulating short distances in her room. No orthopnea or paroxysmal nocturnal dyspnea. No palpitations. No chest pain or chest discomfort other than incisional discomfort. No presyncope, syncope or lightheadedness. No edema in her legs. PHYSICAL EXAMINATION: Temperature 97.0, heart rate 62 (regular), respiratory rate 17, blood pressure 158/70, oxygen saturation 94% on room air. Jugular venous pulsations were at 3 cm. First and second heart sounds were normal. No S3, S4 or murmurs appreciated. Respiratory expansion effort is good. No crackles or wheezes. No peripheral edema. Mood and affect were normal. The pacemaker incision site was without drainage or swelling. The incision was well approximated by lorena. No drainage. No warmth. No inflammation. LABORATORY WORK: 12/27/2018 was reviewed. WBC 10.3, hemoglobin 14.1, hematocrit 42.7, platelets 178. Sodium 138, potassium 4.0, chloride 106, CO2 of 24, BUN 20, estimated GFR greater than 60, creatinine 0.080, albumin 3.3. ASSESSMENT AND PLAN: 1. Paroxysmal atrial fibrillation. The patient is currently atrial paced and has not had any further atrial fibrillation since having had the pacemaker implanted yesterday. For control of rapid ventricular response, I have added diltiazem 180 mg daily, which is also going to be for her hypertension and replaces the amlodipine that she was on prior to admission. Continue with Eliquis and carvedilol 6.25 mg twice a day at the current dosages. 2. Sick sinus syndrome/tachycardia-bradycardia syndrome. The patient now has pacemaker in situ implanted on 12/26/2018. Now that she has a pacemaker, she can better tolerate AV kana slowing agents. Therefore, continue with carvedilol and as noted above, I added diltiazem ER. 3. Dual chamber pacemaker in situ. The patient underwent implantation of a [employer] dual chamber pacemaker yesterday (12/26/2018). The pacemaker incision site is well approximated and without lorena or drainage. The atrial capture thresholds and sensing and lead impedances were all excellent today. To help manage isolated systolic hypertension of the elderly, I increased the base rate from 60 to 70 beats per minute. Rate response was turned on as the patient is now predominantly atrially paced. I shortened the AV pacing sensing intervals and increased the ventricular preference extension from 100 milliseconds to 200 milliseconds. The patient will have incision check and removal of lorena in my office on Saturday of next week. The dressing was changed by the nursing staff from a pressure dressing to a sterile dry dressing applied with paper tape. She is instructed to keep the incision dry until 24 hours after the lorena are removed. I have independently visualized the patient's PA and lateral chest x-ray taken this morning and it shows the atrial and right ventricle leads to be in stable position with the helix extended on both leads. The atrial lead appears to implant in the lower portion of the posterior right atrium and the right ventricle lead implants into the lower right ventricle anterior wall. No pneumothorax. 4. Systemic hypertension. Mild and controlled systolic blood pressure. I have added diltiazem extended release 180 mg daily, which replaces the patient's amlodipine that she was on prior to admission. She will continue on carvedilol 6.25 mg twice a day. Continue losartan 25 mg daily and spironolactone 12.5 mg daily. 5. Abnormal ECG. No ECG obtained today. MTDD
--- NOTE | 2018-12-27 17:58 | DSES ---
DATE OF ADMISSION: 12/26/2018 DATE OF DISCHARGE: 12/27/2018 DISCHARGE DIAGNOSES: 1. Atrial fibrillation with rapid ventricular rate. 2. Tachycardia-bradycardia syndrome. 3. Hypertensive heart disease. 4. Mitral and aortic valve regurgitation. 5. Diabetes mellitus, type 2, [id number]. HOSPITAL COURSE: The patient presented to [facility] Emergency Room (ER) with symptomatic palpitations secondary to atrial fibrillation with rapid ventricular response (RVR). She was cardioverted with digoxin, but then she became symptomatic with bradycardia to the 30s. Given this, she was diagnosed with tachy-anna syndrome, and Dr. Spangler was consulted, and a dual-chamber pacemaker was placed subsequently on 12/26/2018 without difficulty. Patient remained asymptomatic the next day with stable complete blood count (CBC) with differential, comprehensive metabolic panel (CMP), and telemetry showed that she remained in sinus rhythm; therefore, after a discussion with Dr. Spangler, it was felt that she was safe for discharge. Patient was discharged to home on her routine home medications except for increased carvedilol to 6.25 twice a day, hold of amlodipine, new prescription of diltiazem CD 180 by mouth daily, flecainide 50 mg by mouth twice a day, losartan 25 mg by mouth daily. These were E-scribed into [facility] on [facility]. Patient was discharged to home with recommended followup with Dr. Cruz and Dr. Spangler in 5-7 days.
== END 2018-12-27 14:30 | disposition home or self-care (01) ==
LOC: M ED 21:25 → M ED INP 12-26 01:45 → INTOOBSV 12-26 01:45 → M PCU 12-26 14:46
PROVIDERS: ADMIT Internal Medicine; ATTEND Family Medicine
DX: I49.5 Sick sinus syndrome (principal); I48.0 Paroxysmal atrial fibrillation; E11.9 Type 2 diabetes mellitus without complications; I10 Essential (primary) hypertension; I35.9 Nonrheumatic aortic valve disorder, unspecified; I34.9 Nonrheumatic mitral valve disorder, unspecified; R30.0 Dysuria; E78.49 Other hyperlipidemia; D64.9 Anemia, unspecified; Z79.899 Other long term (current) drug therapy
CPT/HCPCS: 33208; 36415; 71045; 71046; 76000; 80048; 80053; 81001; 82550; 82553; 83036; 84100; 84439; 84443; 84484; 85025; 85027; 87086; 93005; 93041; 94760; 96361; 96365; 96375; 96376; 99285; C1785; C1898; G0378; J0690; J0696; J1100; J1160; J2250; J2405

== ENCOUNTER → 2019-02-03 | Outpatient (CLI) | payer MEDICARE, OTHER ==
[~2019-02-03] MED LIST changes: +CARD180C4 PO; +COZA1TAB PO; +DIGO0.12 PO; -DIGO0.123 PO; +FLEC25TA PO; +GLIM2TAB29 PO
[2019-02-03 09:46] LABS: BLOOD UREA NITROGEN 18 MG/DL (7-18); CALCIUM LEVEL 9.3 MG/DL (8.8-10.2); CARBON DIOXIDE LEVEL 28 MEQ/L (21-32); CHLORIDE LEVEL 103 MEQ/L (98-107); CREATININE FOR GFR 0.82 MG/DL (0.55-1.30); GLOMERULAR FILTRATION RATE > 60.0 (>32); GLUCOSE, FASTING 125 MG/DL (70-100); HEMOGLOBIN A1c 6.3 %; POTASSIUM SERUM 4.5 MEQ/L (3.5-5.1); SODIUM LEVEL 138 MEQ/L (136-145)
[2019-02-03 09:57] LABS: MAU/CREAT RATIO 20.4 MCG/MG (0.0-30.0)
== END ==
LOC: M WUC 08:15
PROVIDERS: ATTEND Family Medicine
DX: E11.9 Type 2 diabetes mellitus without complications (principal)

== ENCOUNTER → 2019-08-04 | Outpatient (REF) | payer MEDICARE, OTHER ==
[~2019-08-04] MED LIST changes: +ASPI81CH32 PO; -ASPI81CH36 PO; -DIGO0.12 PO; +DIGO0.123 PO; -GLIM1TAB2 PO; +GLIM1TAB4 PO; -GLIM2TAB2 PO; +GLIM2TAB4 PO
[2019-08-04 11:03] LABS: HEMATOCRIT 44.5 % (36.0-47.0); HEMOGLOBIN 14.6 g/dl (12.0-15.5); MEAN CORPUSCULAR HEMOGLOBIN 29.6 pg (27.0-33.0); MEAN CORPUSCULAR HGB CONC 32.8 g/dl (32.0-36.5); MEAN CORPUSCULAR VOLUME 90.1 fl (80.0-96.0); PLATELET COUNT, AUTOMATED 169 10^3/uL (150-450); RED BLOOD COUNT 4.94 10^6/uL (4.00-5.40); WHITE BLOOD COUNT 2.6 10^3/uL (4.0-10.0)
[2019-08-04 11:09] LABS: ALT/SGPT 25 U/L (12-78); BILIRUBIN,TOTAL 0.8 MG/DL (0.2-1.0); BLOOD UREA NITROGEN 16 MG/DL (7-18); CALCIUM LEVEL 9.3 MG/DL (8.8-10.2); CARBON DIOXIDE LEVEL 30 MEQ/L (21-32); CHLORIDE LEVEL 103 MEQ/L (98-107); CHOLESTEROL LEVEL 171 MG/DL (<200); CREATININE FOR GFR 0.93 MG/DL (0.55-1.30); GLOMERULAR FILTRATION RATE > 60.0 (>32); GLUCOSE, FASTING 131 MG/DL (70-100); POTASSIUM SERUM 4.6 MEQ/L (3.5-5.1); SODIUM LEVEL 139 MEQ/L (136-145); TRIGLYCERIDES LEVEL 228 MG/DL (<150)
[2019-08-04 11:10] LABS: CHOLESTEROL RISK RATIO 4.071 (<5); HDL CHOLESTEROL 42 MG/DL (>40); LDL CHOLESTEROL 83 MG/DL (<100); NON-HDL-C 129 MG/DL; TOTAL PROTEIN 7.8 GM/DL (6.4-8.2)
[2019-08-04 12:15] LABS: HEMOGLOBIN A1c 6.4 %
== END ==
LOC: M PLALAB 08:33
PROVIDERS: ATTEND Family Medicine
DX: I48.0 Paroxysmal atrial fibrillation (principal); I48.91 Unspecified atrial fibrillation; I11.9 Hypertensive heart disease without heart failure; E11.9 Type 2 diabetes mellitus without complications; E78.5 Hyperlipidemia, unspecified

== ENCOUNTER → 2020-01-25 | Outpatient (REF) | payer MEDICARE, OTHER ==
[~2020-01-25] MED LIST changes: +AMLO1TAB24 PO; -AMLO5TAB6 PO
[2020-01-25 13:27] LABS: CALCIUM LEVEL 9.1 MG/DL (8.8-10.2); CREATININE FOR GFR 0.96 MG/DL (0.55-1.30); GLOMERULAR FILTRATION RATE 59.1 (>32); POTASSIUM SERUM 4.9 MEQ/L (3.5-5.1)
== END ==
LOC: M SFHCADAM 08:30
PROVIDERS: ATTEND Family Medicine
DX: E11.9 Type 2 diabetes mellitus without complications (principal)

== ENCOUNTER → 2020-08-11 | Outpatient (REF) | payer MEDICARE, OTHER ==
[2020-08-11 12:56] LABS: BLOOD UREA NITROGEN 15 MG/DL (7-18); CALCIUM LEVEL 9.1 MG/DL (8.8-10.2); CARBON DIOXIDE LEVEL 30 MEQ/L (21-32); CHLORIDE LEVEL 108 MEQ/L (98-107); CREATININE FOR GFR 0.88 MG/DL (0.55-1.30); GLOMERULAR FILTRATION RATE > 60.0 (>32); GLUCOSE, FASTING 111 MG/DL (70-100); POTASSIUM SERUM 4.6 MEQ/L (3.5-5.1); SODIUM LEVEL 140 MEQ/L (136-145)
[2020-08-11 13:08] LABS: CREATININE, URINE 91.4 MG/DL; MAU/CREAT RATIO 28.4 MCG/MG (0.0-30.0)
== END ==
LOC: M SFHCADAM 08:11
PROVIDERS: ATTEND Family Medicine
DX: E11.9 Type 2 diabetes mellitus without complications (principal)

== ENCOUNTER → 2021-04-24 | Outpatient (REF) | payer MEDICARE, OTHER | LOC: M LAB REF 17:13 | PROVIDERS: ATTEND Nurse Practitioner Family | DX: D23.5 Other benign neoplasm of skin of trunk (principal) | CPT/HCPCS: 11102; 17000; 17003; 88305; G0463 ==

== ENCOUNTER 2021-08-08 14:40 | Day surgery (SDC) | payer MEDICARE, OTHER ==
[~2021-08-08] VITALS: Ht 152.4 cm; Wt 59.9 kg
[2021-08-08] MEDS ORDERED: propofoL 200 MG/20 ML VIAL As Ordered ONE (14:49)
[2021-08-08] MEDS ORDERED: LIDOCAINE 2% 100MG/5ML SDV (FOR ANES.) As Ordered ONE (14:49)
[2021-08-08] MEDS ORDERED: MIDAZOLAM INJ 2MG/2ML VIAL (J2250 PER 1MG) As Ordered ONE (14:50)
[2021-08-08] MEDS ORDERED: fentaNYL 100 MCG/2 ML INJECTION As Ordered ONE (14:50)
[2021-08-08 17:39] VITALS: BP 147/70
== END 2021-08-08 17:45 | disposition home or self-care (01) ==
LOC: M SDC 14:40
PROVIDERS: ATTEND Internal Medicine Cardiovascular Disease
DX: I48.19 Other persistent atrial fibrillation (principal); I49.5 Sick sinus syndrome; Z95.0 Presence of cardiac pacemaker; I11.0 Hypertensive heart disease with heart failure; R94.31 Abnormal electrocardiogram [ECG] [EKG]; I38 Endocarditis, valve unspecified; R06.02 Shortness of breath; I50.9 Heart failure, unspecified; E78.5 Hyperlipidemia, unspecified; E11.9 Type 2 diabetes mellitus without complications; Z79.899 Other long term (current) drug therapy; Z88.8 Allergy status to other drugs, medicaments and biological substances
CPT/HCPCS: 36415; 80053; 80061; 83880; 84443; 85025; 87426; 92960; 93005; J3010

== ENCOUNTER → 2021-08-08 | Outpatient (CLI) | payer MEDICARE, OTHER ==
[2021-08-08 14:05] LABS: BASO # 0.1 10^3/uL (0.0-0.2); BASO % 0.9 % (0.0-1.0); EOS # 0.1 10^3/uL (0.0-0.5); EOS % 1.8 % (0.0-3.0); HEMATOCRIT 44.1 % (36.0-47.0); HEMOGLOBIN 14.3 g/dl (12.0-15.5); LYMPH # 1.4 10^3/uL (1.5-5.0); MEAN CORPUSCULAR HEMOGLOBIN 29.1 pg (27.0-33.0); MEAN CORPUSCULAR HGB CONC 32.4 g/dl (32.0-36.5); MEAN CORPUSCULAR VOLUME 89.6 fl (80.0-96.0); MONO # 0.5 10^3/uL (0.0-0.8); MONO % 8.8 % (2.0-8.0); NEUTROPHILS # 3.6 10^3/uL (1.5-8.5); NEUTROPHILS % 63.3 % (36.0-66.0); PLATELET COUNT, AUTOMATED 230 10^3/uL (150-450); RED BLOOD COUNT 4.92 10^6/uL (4.00-5.40); WHITE BLOOD COUNT 5.7 10^3/uL (4.0-10.0)
[2021-08-08 14:42] LABS: ALBUMIN 3.8 GM/DL (3.2-5.2); ALT/SGPT 22 U/L (12-78); BILIRUBIN,TOTAL 0.6 MG/DL (0.2-1.0); BLOOD UREA NITROGEN 18 MG/DL (7-18); CALCIUM LEVEL 9.7 MG/DL (8.8-10.2); CARBON DIOXIDE LEVEL 25 MEQ/L (21-32); CHLORIDE LEVEL 107 MEQ/L (98-107); CHOLESTEROL LEVEL 162 MG/DL (<200); CHOLESTEROL RISK RATIO 3.857 (<5); CREATININE FOR GFR 0.91 MG/DL (0.55-1.30); GLOMERULAR FILTRATION RATE > 60.0 (>32); GLUCOSE, FASTING 140 MG/DL (70-100); HDL CHOLESTEROL 42 MG/DL (>40); LDL CHOLESTEROL 84 MG/DL (<100); NON-HDL-C 120 MG/DL; NT-PRO BNP 4547 PG/ML (<450); POTASSIUM SERUM 4.5 MEQ/L (3.5-5.1); SODIUM LEVEL 139 MEQ/L (136-145); TOTAL PROTEIN 7.4 GM/DL (6.4-8.2); TRIGLYCERIDES LEVEL 182 MG/DL (<150)
== END ==
LOC: M LAB 13:12
PROVIDERS: ATTEND Internal Medicine Cardiovascular Disease
DX: I48.0 Paroxysmal atrial fibrillation (principal); I35.1 Nonrheumatic aortic (valve) insufficiency; I11.9 Hypertensive heart disease without heart failure; R94.31 Abnormal electrocardiogram [ECG] [EKG]

== ENCOUNTER → 2021-08-15 | Outpatient (CLI) | payer MEDICARE, OTHER | LOC: M LAB 09:57 | PROVIDERS: ATTEND Internal Medicine Cardiovascular Disease | DX: I48.0 Paroxysmal atrial fibrillation (principal) ==

== ENCOUNTER → 2021-08-29 | Outpatient (REF) | payer MEDICARE, OTHER ==
[2021-08-29 16:36] LABS: ALBUMIN 3.6 GM/DL (3.2-5.2); ALT/SGPT 17 U/L (12-78); BILIRUBIN,TOTAL 0.6 MG/DL (0.2-1.0); BLOOD UREA NITROGEN 16 MG/DL (7-18); CALCIUM LEVEL 9.1 MG/DL (8.8-10.2); CARBON DIOXIDE LEVEL 28 MEQ/L (21-32); CHLORIDE LEVEL 107 MEQ/L (98-107); CHOLESTEROL LEVEL 148 MG/DL (<200); CHOLESTEROL RISK RATIO 3.441 (<5); CREATININE FOR GFR 0.88 MG/DL (0.55-1.30); FREE T4 1.06 NG/DL (0.76-1.46); GLOMERULAR FILTRATION RATE > 60.0 (>32); GLUCOSE, FASTING 115 MG/DL (70-100); HDL CHOLESTEROL 43 MG/DL (>40); LDL CHOLESTEROL 59 MG/DL (<100); NON-HDL-C 105 MG/DL; POTASSIUM SERUM 4.8 MEQ/L (3.5-5.1); SODIUM LEVEL 138 MEQ/L (136-145); TRIGLYCERIDES LEVEL 231 MG/DL (<150)
[2021-08-29 16:39] LABS: CREATININE, URINE 84.4 MG/DL; MALB URINE SIEMENS 21.6 MG/L; MAU/CREAT RATIO 25.5 MCG/MG (0.0-30.0)
[2021-08-29 16:43] LABS: HEMOGLOBIN A1c 6.2 %
== END ==
LOC: M SFHCCAPE 07:27
PROVIDERS: ATTEND Family Medicine
DX: E78.2 Mixed hyperlipidemia (principal); E11.9 Type 2 diabetes mellitus without complications; I48.0 Paroxysmal atrial fibrillation

== ENCOUNTER → 2022-02-08 | Outpatient (REF) | payer MEDICARE, OTHER ==
[2022-02-08 17:43] LABS: CALCIUM LEVEL 9.4 MG/DL (8.8-10.2); CREATININE FOR GFR 0.98 MG/DL (0.55-1.30); GLOMERULAR FILTRATION RATE 57.4 (>32); POTASSIUM SERUM 4.5 MEQ/L (3.5-5.1)
[2022-02-08 19:21] LABS: HEMOGLOBIN A1c 6.3 %
== END ==
LOC: M SFHCCAPE 07:28
PROVIDERS: ATTEND Family Medicine
DX: E11.9 Type 2 diabetes mellitus without complications (principal)

== ENCOUNTER → 2022-08-28 | Outpatient (CLI) | payer MEDICARE, OTHER ==
[2022-08-28 09:38] LABS: HEMATOCRIT 34.4 % (36.0-47.0); HEMOGLOBIN 10.7 g/dl (12.0-15.5); MEAN CORPUSCULAR HEMOGLOBIN 27.2 pg (27.0-33.0); MEAN CORPUSCULAR HGB CONC 31.1 g/dl (32.0-36.5); MEAN CORPUSCULAR VOLUME 87.3 fl (80.0-96.0); PLATELET COUNT, AUTOMATED 264 10^3/uL (150-450); RED BLOOD COUNT 3.94 10^6/uL (4.00-5.40); WHITE BLOOD COUNT 5.4 10^3/uL (4.0-10.0)
[2022-08-28 09:53] LABS: HEMOGLOBIN A1c 6.3 % (4.0-6.0)
[2022-08-28 10:08] LABS: CREATININE, URINE 72.6 MG/DL; MAU/CREAT RATIO 64.7 MCG/MG (0.0-30.0)
[2022-08-28 10:09] LABS: ALBUMIN 3.6 G/DL (3.2-5.2); ALKALINE PHOSPHATASE 44 U/L (46-116); ALT/SGPT 18 U/L (7.0-40); AST/SGOT 17 U/L (<34); BILIRUBIN,TOTAL 0.5 MG/DL (0.3-1.2); BLOOD UREA NITROGEN 14 MG/DL (9-23); CALCIUM LEVEL 8.9 MG/DL (8.3-10.6); CARBON DIOXIDE LEVEL 27 MMOL/L (20-31); CHLORIDE LEVEL 103 MMOL/L (98-107); CHOLESTEROL LEVEL 136 MG/DL (<200); CHOLESTEROL RISK RATIO 3.37 (<5); CREATININE FOR GFR 0.83 MG/DL (0.55-1.30); GLOMERULAR FILTRATION RATE > 60.0 (>32); GLUCOSE, FASTING 126 MG/DL (74-106); HDL CHOLESTEROL 40.3 MG/DL (>40); LDL CHOLESTEROL 60.5 MG/DL (<100); NON-HDL-C 95.7 MG/DL; POTASSIUM SERUM 4.5 MMOL/L (3.5-5.1); SODIUM LEVEL 137 MMOL/L (136-145); TOTAL PROTEIN 6.8 G/DL (5.7-8.2); TRIGLYCERIDES LEVEL 176 MG/DL (<150)
[2022-08-28 11:39] LABS: FREE T4 1.13 NG/DL (0.89-1.76); THYROID STIMULATING HORMONE 2.616 uIU/ML (0.55-4.78)
== END ==
LOC: M LAB 08:14
PROVIDERS: ATTEND Family Medicine
DX: E11.9 Type 2 diabetes mellitus without complications (principal); I48.0 Paroxysmal atrial fibrillation; E78.2 Mixed hyperlipidemia; Z95.0 Presence of cardiac pacemaker; I11.9 Hypertensive heart disease without heart failure

== ENCOUNTER → 2022-08-30 | Outpatient (REF) | payer MEDICARE, OTHER ==
[2022-08-30 14:37] LABS: FERRITIN 10.5 NG/ML (7.3-270.7); FOLATE > 24.00 NG/ML (>5.4); IRON (FE) 24 UG/DL (50-170); PERCENT SATURATION 5.8 % (13.2-45.0); TOTAL IRON BINDING CAPACITY 417 UG/DL (250-425)
[2022-08-30 14:38] LABS: VITAMIN B12 LEVEL 747 PG/ML (211-911)
[2022-08-31 13:10] LABS: HAPTOGLOBIN 201 mg/dL (41-333)
== END ==
LOC: M SFHCADAM 10:00
PROVIDERS: ATTEND Family Medicine
DX: D64.9 Anemia, unspecified (principal)

== ENCOUNTER → 2023-02-13 | Outpatient (REF) | payer MEDICARE, OTHER ==
[~2023-02-13] MED LIST changes: -COZA1TAB PO; +LOSA-527 PO
[2023-02-13 13:59] LABS: HEMATOCRIT 33.7 % (36.0-47.0); HEMOGLOBIN 10.5 g/dl (12.0-15.5); MEAN CORPUSCULAR HEMOGLOBIN 27.5 pg (27.0-33.0); MEAN CORPUSCULAR HGB CONC 31.2 g/dl (32.0-36.5); MEAN CORPUSCULAR VOLUME 88.2 fl (80.0-96.0); PLATELET COUNT, AUTOMATED 270 10^3/uL (150-450); RED BLOOD COUNT 3.82 10^6/uL (4.00-5.40); WHITE BLOOD COUNT 7.8 10^3/uL (4.0-10.0)
[2023-02-13 14:12] LABS: HEMOGLOBIN A1c 6.8 % (4.0-6.0)
[2023-02-13 14:26] LABS: IRON (FE) 44 UG/DL (50-170)
[2023-02-13 14:27] LABS: ALKALINE PHOSPHATASE 53 U/L (46-116); ALT/SGPT 13 U/L (7.0-40); AST/SGOT 14 U/L (<34); BILIRUBIN,TOTAL 0.5 MG/DL (0.3-1.2); BLOOD UREA NITROGEN 15 MG/DL (9-23); CALCIUM LEVEL 8.8 MG/DL (8.3-10.6); CARBON DIOXIDE LEVEL 29 MMOL/L (20-31); CHLORIDE LEVEL 103 MMOL/L (98-107); CREATININE FOR GFR 0.74 MG/DL (0.55-1.30); GLOMERULAR FILTRATION RATE > 60.0 (>32); GLUCOSE, FASTING 156 MG/DL (74-106); PERCENT SATURATION 11.8 % (13.2-45.0); SODIUM LEVEL 137 MMOL/L (136-145); TOTAL IRON BINDING CAPACITY 372 UG/DL (250-425); TOTAL PROTEIN 6.4 G/DL (5.7-8.2)
[2023-02-13 14:28] LABS: FREE T4 1.02 NG/DL (0.89-1.76)
[2023-02-13 14:29] LABS: FERRITIN 10.1 NG/ML (7.3-270.7); THYROID STIMULATING HORMONE 2.749 uIU/ML (0.55-4.78)
== END ==
LOC: M SFHCADAM 11:10
PROVIDERS: ATTEND Family Medicine
DX: D64.9 Anemia, unspecified (principal); E11.9 Type 2 diabetes mellitus without complications; I48.0 Paroxysmal atrial fibrillation

== ENCOUNTER → 2023-04-19 | Outpatient (CLI) | payer MEDICARE, OTHER ==
[2023-04-19 17:44] LABS: HEMATOCRIT 26.2 % (36.0-47.0); HEMOGLOBIN 7.6 g/dl (12.0-15.5); MEAN CORPUSCULAR VOLUME 75.9 fl (80.0-96.0); PLATELET COUNT, AUTOMATED 282 10^3/uL (150-450); RED BLOOD COUNT 3.45 10^6/uL (4.00-5.40); WHITE BLOOD COUNT 6.8 10^3/uL (4.0-10.0)
[2023-04-19 18:05] LABS: HEMOGLOBIN A1c 7.3 % (4.0-6.0)
[2023-04-19 18:16] LABS: BLOOD UREA NITROGEN 20 MG/DL (9-23); CALCIUM LEVEL 8.8 MG/DL (8.3-10.6); CARBON DIOXIDE LEVEL 28 MMOL/L (20-31); CHLORIDE LEVEL 101 MMOL/L (98-107); CREATININE FOR GFR 0.87 MG/DL (0.55-1.30); FERRITIN 4.2 NG/ML (7.3-270.7); FOLATE > 24.0 NG/ML (>5.4); GLOMERULAR FILTRATION RATE > 60.0 (>32); GLUCOSE, FASTING 185 MG/DL (74-106); IRON (FE) 18 UG/DL (50-170); PERCENT SATURATION 4.2 % (13.2-45.0); POTASSIUM SERUM 4.6 MMOL/L (3.5-5.1); SODIUM LEVEL 134 MMOL/L (136-145); TOTAL IRON BINDING CAPACITY 428 UG/DL (250-425)
[2023-04-19 18:17] LABS: VITAMIN B12 LEVEL 732 PG/ML (211-911)
== END ==
LOC: M LAB 16:52
PROVIDERS: ATTEND Family Medicine
DX: R06.09 Other forms of dyspnea (principal); D64.9 Anemia, unspecified; R07.9 Chest pain, unspecified; I48.91 Unspecified atrial fibrillation; E11.9 Type 2 diabetes mellitus without complications

== ENCOUNTER → 2023-04-24 | Outpatient (CLI) | payer MEDICARE, OTHER | LOC: M LAB 14:14 | PROVIDERS: ATTEND Physician Assistant Medical | DX: D64.9 Anemia, unspecified (principal) ==

== ENCOUNTER 2023-04-25 10:58 | Outpatient (CLI) | payer MEDICARE, OTHER ==
[2023-04-25] VITALS (7 sets, daily range): BP systolic 110–141; BP diastolic 55–74; TEMP 97.3–98.3; O2SAT 97–100
[~2023-04-25] VITALS: Ht 152.4 cm; Wt 57.0 kg
[~2023-04-25 10:58] MED LIST changes: +ACETAMINOPHEN 500 MG TAB PO ONE; +diphenhydrAMINE 25MG CAP PO ONE
== END 2023-04-25 15:20 ==
LOC: M INFU 10:58
PROVIDERS: ATTEND Physician Assistant Medical
DX: D64.9 Anemia, unspecified (principal); Z88.8 Allergy status to other drugs, medicaments and biological substances
CPT/HCPCS: 36430; P9016

== ENCOUNTER → 2023-07-02 | Outpatient (CLI) | payer MEDICARE, OTHER ==
[~2023-07-02] MED LIST changes: -ACETAMINOPHEN 500 MG TAB PO ONE; -diphenhydrAMINE 25MG CAP PO ONE
[2023-07-02 11:35] LABS: HEMATOCRIT 35.2 % (36.0-47.0); MEAN CORPUSCULAR HEMOGLOBIN 28.1 pg (27.0-33.0); MEAN CORPUSCULAR HGB CONC 31.3 g/dl (32.0-36.5); PLATELET COUNT, AUTOMATED 242 10^3/uL (150-450); RED BLOOD COUNT 3.91 10^6/uL (4.00-5.40); WHITE BLOOD COUNT 6.6 10^3/uL (4.0-10.0)
== END ==
LOC: M LAB 10:51
PROVIDERS: ATTEND Physician Assistant
DX: I48.0 Paroxysmal atrial fibrillation (principal)

== ENCOUNTER → 2023-07-02 | Outpatient (CLI) | payer MEDICARE, OTHER ==
[2023-07-02 11:36] LABS: HEMATOCRIT 35.7 % (36.0-47.0); MEAN CORPUSCULAR HEMOGLOBIN 28.1 pg (27.0-33.0); MEAN CORPUSCULAR HGB CONC 30.8 g/dl (32.0-36.5); MEAN CORPUSCULAR VOLUME 91.1 fl (80.0-96.0); PLATELET COUNT, AUTOMATED 251 10^3/uL (150-450); RED BLOOD COUNT 3.92 10^6/uL (4.00-5.40); WHITE BLOOD COUNT 6.7 10^3/uL (4.0-10.0)
[2023-07-02 11:55] LABS: CALCIUM LEVEL 8.7 MG/DL (8.3-10.6); CREATININE FOR GFR 0.96 MG/DL (0.55-1.30); GLOMERULAR FILTRATION RATE 58.5 (>32); PERCENT SATURATION 24.9 % (13.2-45.0); POTASSIUM SERUM 4.9 MMOL/L (3.5-5.1)
[2023-07-02 11:57] LABS: FERRITIN 16.3 NG/ML (7.3-270.7)
== END ==
LOC: M LAB 10:49
PROVIDERS: ATTEND Family Medicine
DX: I11.9 Hypertensive heart disease without heart failure (principal); D50.9 Iron deficiency anemia, unspecified

== ENCOUNTER → 2023-08-21 | Outpatient (REF) | payer MEDICARE, OTHER ==
[~2023-08-21] MED LIST changes: -GLIM1TAB4 PO; +GLIM1TAB84 PO
[2023-08-21 18:33] LABS: BLOOD UREA NITROGEN 15 MG/DL (9-23); CALCIUM LEVEL 9.4 MG/DL (8.3-10.6); CARBON DIOXIDE LEVEL 26 MMOL/L (20-31); CHLORIDE LEVEL 103 MMOL/L (98-107); CREATININE FOR GFR 0.73 MG/DL (0.55-1.30); GLOMERULAR FILTRATION RATE > 60.0 (>32); GLUCOSE, FASTING 273 MG/DL (74-106); MAGNESIUM LEVEL 1.9 MG/DL (1.8-2.4); POTASSIUM SERUM 4.7 MMOL/L (3.5-5.1); SODIUM LEVEL 136 MMOL/L (136-145)
[2023-08-21 18:36] LABS: THYROID STIMULATING HORMONE 3.058 uIU/ML (0.55-4.78)
== END ==
LOC: M LABDRWCV 17:27
PROVIDERS: ATTEND Physician Assistant
DX: I48.0 Paroxysmal atrial fibrillation (principal)

== ENCOUNTER → 2023-09-20 | Outpatient (CLI) | payer MEDICARE, OTHER ==
[2023-09-20 15:26] LABS: HEMATOCRIT 33.9 % (36.0-47.0); HEMOGLOBIN 10.5 g/dl (12.0-15.5); MEAN CORPUSCULAR HEMOGLOBIN 28.2 pg (27.0-33.0); MEAN CORPUSCULAR VOLUME 91.1 fl (80.0-96.0); PLATELET COUNT, AUTOMATED 258 10^3/uL (150-450); RED BLOOD COUNT 3.72 10^6/uL (4.00-5.40); WHITE BLOOD COUNT 6.2 10^3/uL (4.0-10.0)
[2023-09-20 15:31] LABS: ALBUMIN 3.3 G/DL (3.2-5.2); ALKALINE PHOSPHATASE 49 U/L (46-116); ALT/SGPT 18 U/L (7.0-40); AST/SGOT 10 U/L (<34); BILIRUBIN,TOTAL 0.4 MG/DL (0.3-1.2); BLOOD UREA NITROGEN 19 MG/DL (9-23); CALCIUM LEVEL 9.2 MG/DL (8.3-10.6); CARBON DIOXIDE LEVEL 28 MMOL/L (20-31); CHLORIDE LEVEL 104 MMOL/L (98-107); CHOLESTEROL LEVEL 134 MG/DL (<200); CHOLESTEROL RISK RATIO 3.89 (<5); DIGOXIN LEVEL 1.3 NG/ML (0.8-2.0); GLOMERULAR FILTRATION RATE > 60.0 (>32); GLUCOSE, FASTING 233 MG/DL (74-106); HDL CHOLESTEROL 34.4 MG/DL (>40); IRON (FE) 31 UG/DL (50-170); LDL CHOLESTEROL 39.2 MG/DL (<100); NON-HDL-C 99.6 MG/DL; PERCENT SATURATION 8.5 % (13.2-45.0); POTASSIUM SERUM 5.1 MMOL/L (3.5-5.1); SODIUM LEVEL 136 MMOL/L (136-145); TOTAL IRON BINDING CAPACITY 366 UG/DL (250-425); TOTAL PROTEIN 6.5 G/DL (5.7-8.2); TRIGLYCERIDES LEVEL 302 MG/DL (<150)
[2023-09-20 15:32] LABS: FERRITIN 16.3 NG/ML (7.3-270.7)
[2023-09-20 15:33] LABS: FREE T4 1.11 NG/DL (0.89-1.76); THYROID STIMULATING HORMONE 1.886 uIU/ML (0.55-4.78)
[2023-09-20 15:38] LABS: HEMOGLOBIN A1c 7.5 % (4.0-6.0)
== END ==
LOC: M PLALAB 11:38
PROVIDERS: ATTEND Family Medicine
DX: D50.0 Iron deficiency anemia secondary to blood loss (chronic) (principal); I48.0 Paroxysmal atrial fibrillation; E11.9 Type 2 diabetes mellitus without complications; E78.2 Mixed hyperlipidemia

== ENCOUNTER → 2023-10-08 | Outpatient (CLI) | payer MEDICARE, OTHER | LOC: M ADAMS 10:52 | PROVIDERS: ATTEND Family Medicine | DX: R06.09 Other forms of dyspnea (principal); R53.83 Other fatigue ==

== ENCOUNTER → 2023-10-08 | Outpatient (REF) | payer MEDICARE, OTHER ==
[2023-10-08 14:56] LABS: HEMATOCRIT 37.4 % (36.0-47.0); HEMOGLOBIN 11.2 g/dl (12.0-15.5); MEAN CORPUSCULAR HEMOGLOBIN 27.1 pg (27.0-33.0); MEAN CORPUSCULAR HGB CONC 29.9 g/dl (32.0-36.5); MEAN CORPUSCULAR VOLUME 90.3 fl (80.0-96.0); PLATELET COUNT, AUTOMATED 286 10^3/uL (150-450); RED BLOOD COUNT 4.14 10^6/uL (4.00-5.40); WHITE BLOOD COUNT 7.8 10^3/uL (4.0-10.0)
[2023-10-08 15:25] LABS: BLOOD UREA NITROGEN 20 MG/DL (9-23); CALCIUM LEVEL 9.4 MG/DL (8.3-10.6); CARBON DIOXIDE LEVEL 28 MMOL/L (20-31); CHLORIDE LEVEL 100 MMOL/L (98-107); CREATININE FOR GFR 0.71 MG/DL (0.55-1.30); DIGOXIN LEVEL 0.9 NG/ML (0.8-2.0); GLOMERULAR FILTRATION RATE > 60.0 (>32); GLUCOSE, FASTING 276 MG/DL (74-106); POTASSIUM SERUM 4.7 MMOL/L (3.5-5.1); SODIUM LEVEL 135 MMOL/L (136-145)
== END ==
LOC: M SFHCADAM 10:43
PROVIDERS: ATTEND Family Medicine
DX: R06.09 Other forms of dyspnea (principal); R53.83 Other fatigue; I48.91 Unspecified atrial fibrillation

== ENCOUNTER → 2023-10-24 | Outpatient (CLI) | payer MEDICARE, OTHER | LOC: M PLAIMG 13:34 | PROVIDERS: ATTEND Family Medicine | DX: I48.91 Unspecified atrial fibrillation (principal); R06.09 Other forms of dyspnea; R53.83 Other fatigue ==

== ENCOUNTER → 2023-12-19 | Outpatient (REF) | payer MEDICARE, OTHER ==
[2023-12-19 17:51] LABS: LIPASE 46 U/L (12-53)
[2023-12-19 17:53] LABS: AMYLASE 83 U/L (30-118); HEMOGLOBIN 7.7 g/dl (12.0-15.5); IRON (FE) 120 UG/DL (50-170); MEAN CORPUSCULAR HEMOGLOBIN 25.4 pg (27.0-33.0); MEAN CORPUSCULAR HGB CONC 29.6 g/dl (32.0-36.5); MEAN CORPUSCULAR VOLUME 85.8 fl (80.0-96.0); PERCENT SATURATION 31.7 % (13.2-45.0); PLATELET COUNT, AUTOMATED 306 10^3/uL (150-450); RED BLOOD COUNT 3.03 10^6/uL (4.00-5.40); TOTAL IRON BINDING CAPACITY 378 UG/DL (250-425); WHITE BLOOD COUNT 8.3 10^3/uL (4.0-10.0)
[2023-12-19 17:54] LABS: ALBUMIN 3.2 G/DL (3.2-5.2); ALKALINE PHOSPHATASE 49 U/L (46-116); ALT/SGPT 13 U/L (7.0-40); AST/SGOT < 8 U/L (<34); BILIRUBIN,TOTAL 0.3 MG/DL (0.3-1.2); BLOOD UREA NITROGEN 19 MG/DL (9-23); CALCIUM LEVEL 9.2 MG/DL (8.3-10.6); CARBON DIOXIDE LEVEL 29 MMOL/L (20-31); CHLORIDE LEVEL 101 MMOL/L (98-107); CREATININE FOR GFR 0.88 MG/DL (0.55-1.30); DIGOXIN LEVEL 0.5 NG/ML (0.8-2.0); GLOMERULAR FILTRATION RATE > 60.0 (>32); GLUCOSE, FASTING 210 MG/DL (74-106); POTASSIUM SERUM 4.9 MMOL/L (3.5-5.1); SODIUM LEVEL 133 MMOL/L (136-145); TOTAL PROTEIN 6.3 G/DL (5.7-8.2)
[2023-12-19 17:55] LABS: FERRITIN 9.3 NG/ML (7.3-270.7)
[2023-12-19 18:01] LABS: AMORPHOUS SEDIMENT SMALL (NEGATIVE); APPEARANCE, URINE CLOUDY (CLEAR); BACTERIA, URINE AUTO 1+ (NEGATIVE); BILIRUBIN, URINE AUTO NEGATIVE (NEGATIVE); BLOOD, URINE BLOOD NEGATIVE (NEGATIVE); COLOR, URINE AMBER (YELLOW); GLUCOSE, URINE (UA) AUTO NEGATIVE (NEGATIVE); KETONE, URINE AUTO NEGATIVE (NEGATIVE); LEUKOCYTE ESTERASE, URINE AUTO 3+ (NEGATIVE); MUCUS, URINE SMALL (NEGATIVE); NITRITE, URINE AUTO POSITIVE (NEGATIVE); PROTEIN, URINE AUTO NEGATIVE (NEGATIVE); RBC, URINE AUTO 13 /HPF (0-3); SPECIFIC GRAVITY URINE AUTO 1.019 (1.002-1.035); SQUAMOUS EPITHELIAL CELL UR AU 5 /HPF (0-6); UROBILINOGEN, URINE AUTO 0.2 mg/dL (0.0-2.0); WBC, URINE AUTO 101 /HPF (0-3)
[2023-12-19 18:55] LABS: HEMOGLOBIN A1c 6.9 % (4.0-6.0)
== END ==
LOC: M SFHCADAM 13:48
PROVIDERS: ATTEND Family Medicine
DX: R53.82 Chronic fatigue, unspecified (principal); D50.0 Iron deficiency anemia secondary to blood loss (chronic); E11.9 Type 2 diabetes mellitus without complications; R10.10 Upper abdominal pain, unspecified; I48.0 Paroxysmal atrial fibrillation; R63.4 Abnormal weight loss; R06.09 Other forms of dyspnea

== ENCOUNTER → 2023-12-19 | Outpatient (CLI) | payer MEDICARE, OTHER ==
[~2023-12-19] MED LIST changes: +B-12100010 PO; +CARV25TA PO; +D3 H10002 PO; +FERR325T19 PO; +JANU100T PO; +LOSA25TA13 PO; +PROBCAP14 PO; +THERTAB52 PO
== END ==
LOC: M ADAMS 14:05
PROVIDERS: ATTEND Family Medicine
DX: I11.9 Hypertensive heart disease without heart failure (principal)

== ENCOUNTER → 2023-12-22 | Outpatient (CLI) | payer MEDICARE, OTHER ==
[~2023-12-22] MED LIST changes: -B-12100010 PO; -CARV25TA PO; -D3 H10002 PO; -FERR325T19 PO; -JANU100T PO; -LOSA25TA13 PO; -PROBCAP14 PO; -THERTAB52 PO
== END ==
LOC: M LAB 14:29
PROVIDERS: ATTEND Family Medicine
DX: D64.9 Anemia, unspecified (principal)

== ENCOUNTER 2023-12-23 08:42 | Outpatient (CLI) | payer MEDICARE, OTHER ==
[~2023-12-23] VITALS: Ht 152.4 cm; Wt 50.0 kg
[2023-12-23 08:55] VITALS: BP 121/58; O2SAT 96
[2023-12-23 10:09] VITALS: BP 116/57; TEMP 97; O2SAT 96
[2023-12-23 11:00] VITALS: BP 128/66; TEMP 96.8; O2SAT 98
[2023-12-23 11:26] VITALS: BP 133/63; TEMP 97; O2SAT 98
[2023-12-23 12:21] VITALS: BP 151/67; TEMP 96.3; O2SAT 96
[2023-12-23 14:00] VITALS: BP 144/64; O2SAT 95
[2023-12-23 14:12] LABS: HEMATOCRIT 30.3 % (36.0-47.0); HEMOGLOBIN 9.5 g/dl (12.0-15.5); MEAN CORPUSCULAR HEMOGLOBIN 26.6 pg (27.0-33.0); MEAN CORPUSCULAR HGB CONC 31.4 g/dl (32.0-36.5); MEAN CORPUSCULAR VOLUME 84.9 fl (80.0-96.0); PLATELET COUNT, AUTOMATED 258 10^3/uL (150-450); RED BLOOD COUNT 3.57 10^6/uL (4.00-5.40)
== END 2023-12-23 14:00 ==
LOC: M INFU 08:42
PROVIDERS: ATTEND Family Medicine
DX: D64.9 Anemia, unspecified (principal); Z88.8 Allergy status to other drugs, medicaments and biological substances
CPT/HCPCS: 36430; 36592; 85027; P9016

== ENCOUNTER 2024-01-13 08:43 | Day surgery (SDC) | payer MEDICARE, OTHER ==
[~2024-01-13] VITALS: Ht 152.4 cm; Wt 50.5 kg
[~2024-01-13 08:43] MED LIST changes: +B-12100010 PO; +CARV25TA PO; +D3 H10002 PO; +FERR325T19 PO; +JANU100T PO; +LOSA25TA13 PO; +NS 250 ML IV ONE; +PROBCAP14 PO; +THERTAB52 PO
[2024-01-13] MEDS ORDERED: propofoL 200 MG/20 ML VIAL As Ordered ONE (10:13)
[2024-01-13] MEDS ORDERED: GLYCOPYRROLATE INJ 0.2 MG/ML 2 ML VIAL As Ordered ONE (10:13)
[2024-01-13] MEDS ORDERED: LIDOCAINE 2% 100MG/5ML SDV (FOR ANES.) As Ordered ONE (10:13)
[2024-01-13] MEDS ORDERED: ePHEDrine SULFATE 25 MG/5 ML(5MG/ML) SYRINGE As Ordered ONE (10:45)
[2024-01-13 11:25] VITALS: BP 113/54; O2SAT 99
[2024-01-13 11:42] LABS: HEMATOCRIT 25.7 % (36.0-47.0); HEMOGLOBIN 7.6 g/dl (12.0-15.5); MEAN CORPUSCULAR HEMOGLOBIN 24.9 pg (27.0-33.0); MEAN CORPUSCULAR HGB CONC 29.6 g/dl (32.0-36.5); MEAN CORPUSCULAR VOLUME 84.3 fl (80.0-96.0); PLATELET COUNT, AUTOMATED 274 10^3/uL (150-450); RED BLOOD COUNT 3.05 10^6/uL (4.00-5.40); WHITE BLOOD COUNT 5.8 10^3/uL (4.0-10.0)
[2024-01-13 12:02] LABS: ALBUMIN 2.9 G/DL (3.2-5.2); ALKALINE PHOSPHATASE 50 U/L (46-116); ALT/SGPT 10 U/L (7.0-40); AST/SGOT < 8 U/L (<34); BILIRUBIN,TOTAL 0.5 MG/DL (0.3-1.2); BLOOD UREA NITROGEN 17 MG/DL (9-23); CALCIUM LEVEL 8.8 MG/DL (8.3-10.6); CARBON DIOXIDE LEVEL 25 MMOL/L (20-31); CHLORIDE LEVEL 106 MMOL/L (98-107); CREATININE FOR GFR 0.66 MG/DL (0.55-1.30); GLOMERULAR FILTRATION RATE > 60.0 (>32); GLUCOSE, FASTING 228 MG/DL (74-106); POTASSIUM SERUM 4.5 MMOL/L (3.5-5.1); SODIUM LEVEL 137 MMOL/L (136-145); TOTAL PROTEIN 6.2 G/DL (5.7-8.2)
== END 2024-01-13 11:32 | disposition home or self-care (01) ==
LOC: M OPP 08:43
PROVIDERS: ATTEND Internal Medicine Gastroenterology
DX: D50.9 Iron deficiency anemia, unspecified (principal); K64.0 First degree hemorrhoids; D49.0 Neoplasm of unspecified behavior of digestive system; K56.691 Other complete intestinal obstruction; K57.30 Diverticulosis of large intestine without perforation or abscess without bleeding; K44.9 Diaphragmatic hernia without obstruction or gangrene; K31.1 Adult hypertrophic pyloric stenosis; C18.5 Malignant neoplasm of splenic flexure; I48.91 Unspecified atrial fibrillation; I10 Essential (primary) hypertension; E78.00 Pure hypercholesterolemia, unspecified; E11.9 Type 2 diabetes mellitus without complications; R12 Heartburn; F32.A Depression, unspecified; Z95.0 Presence of cardiac pacemaker; Z88.8 Allergy status to other drugs, medicaments and biological substances; Z79.01 Long term (current) use of anticoagulants; Z79.84 Long term (current) use of oral hypoglycemic drugs; Z79.899 Other long term (current) drug therapy
CPT/HCPCS: 36415; 43245; 45381; 80053; 82378; 85027; 88305; J1596

== ENCOUNTER → 2024-01-20 | Outpatient (CLI) | payer MEDICARE, OTHER ==
[~2024-01-20] MED LIST changes: +GASTROGRAFIN SOLUTION 30ML As Ordered ONE; +ISOVUE-370 76% 100ML VIAL As Ordered ONE; -NS 250 ML IV ONE
== END ==
LOC: M RAD 09:09
PROVIDERS: ATTEND Nurse Practitioner Family
DX: K63.89 Other specified diseases of intestine (principal); K80.20 Calculus of gallbladder without cholecystitis without obstruction; I72.2 Aneurysm of renal artery; K57.90 Diverticulosis of intestine, part unspecified, without perforation or abscess without bleeding; K76.89 Other specified diseases of liver; I70.0 Atherosclerosis of aorta; R91.8 Other nonspecific abnormal finding of lung field; Z95.0 Presence of cardiac pacemaker; K44.9 Diaphragmatic hernia without obstruction or gangrene; E04.1 Nontoxic single thyroid nodule
CPT/HCPCS: 71260; 74177; Q9963; Q9967

== ENCOUNTER → 2024-02-05 | Outpatient (REF) | payer MEDICARE, OTHER ==
[~2024-02-05] MED LIST changes: -GASTROGRAFIN SOLUTION 30ML As Ordered ONE; -ISOVUE-370 76% 100ML VIAL As Ordered ONE
[2024-02-05 17:52] LABS: BLOOD UREA NITROGEN 18 MG/DL (9-23); CALCIUM LEVEL 9.1 MG/DL (8.3-10.6); CARBON DIOXIDE LEVEL 28 MMOL/L (20-31); CHLORIDE LEVEL 98 MMOL/L (98-107); CREATININE FOR GFR 0.66 MG/DL (0.55-1.30); GLOMERULAR FILTRATION RATE > 60.0 (>32); GLUCOSE, FASTING 264 MG/DL (74-106); POTASSIUM SERUM 4.8 MMOL/L (3.5-5.1); SODIUM LEVEL 133 MMOL/L (136-145)
== END ==
LOC: M SFHCADAM 11:26
PROVIDERS: ATTEND Family Medicine
DX: I11.9 Hypertensive heart disease without heart failure (principal)

== ENCOUNTER → 2024-02-10 | Outpatient (CLI) | payer MEDICARE, OTHER ==
[2024-02-10 19:15] LABS: HEMATOCRIT 25.4 % (36.0-47.0); HEMOGLOBIN 7.1 g/dl (12.0-15.5); MEAN CORPUSCULAR HEMOGLOBIN 24.1 pg (27.0-33.0); MEAN CORPUSCULAR VOLUME 86.4 fl (80.0-96.0); PLATELET COUNT, AUTOMATED 319 10^3/uL (150-450); RED BLOOD COUNT 2.94 10^6/uL (4.00-5.40); WHITE BLOOD COUNT 8.5 10^3/uL (4.0-10.0)
[2024-02-10 21:31] LABS: TOTAL IRON BINDING CAPACITY 377 UG/DL (250-425)
[2024-02-10 21:32] LABS: BLOOD UREA NITROGEN 24 MG/DL (9-23); CARBON DIOXIDE LEVEL 25 MMOL/L (20-31); CHLORIDE LEVEL 103 MMOL/L (98-107); CREATININE FOR GFR 0.65 MG/DL (0.55-1.30); GLOMERULAR FILTRATION RATE > 60.0 (>32); GLUCOSE, FASTING 282 MG/DL (74-106); IRON (FE) 8 UG/DL (50-170); PERCENT SATURATION 2.1 % (13.2-45.0); SODIUM LEVEL 136 MMOL/L (136-145)
[2024-02-10 21:34] LABS: FERRITIN 84.7 NG/ML (7.3-270.7)
== END ==
LOC: M WUC 12:11
PROVIDERS: ATTEND Family Medicine
DX: D50.0 Iron deficiency anemia secondary to blood loss (chronic) (principal); I48.91 Unspecified atrial fibrillation; Z79.01 Long term (current) use of anticoagulants

== ENCOUNTER → 2024-02-12 | Outpatient (CLI) | payer MEDICARE, OTHER | LOC: M LAB 13:37 | PROVIDERS: ATTEND Family Medicine | DX: D64.9 Anemia, unspecified (principal) ==

== ENCOUNTER 2024-02-13 10:43 | Outpatient (CLI) | payer MEDICARE, OTHER ==
[~2024-02-13] VITALS: Ht 152.4 cm; Wt 50.0 kg
[2024-02-13] VITALS (8 sets, daily range): BP systolic 114–152; BP diastolic 55–86; TEMP 97.4–98.6; O2SAT 94–99
[2024-02-13 16:22] LABS: HEMATOCRIT 28.5 % (36.0-47.0); HEMOGLOBIN 8.8 g/dl (12.0-15.5); MEAN CORPUSCULAR HEMOGLOBIN 25.8 pg (27.0-33.0); MEAN CORPUSCULAR HGB CONC 30.9 g/dl (32.0-36.5); MEAN CORPUSCULAR VOLUME 83.6 fl (80.0-96.0); PLATELET COUNT, AUTOMATED 235 10^3/uL (150-450); RED BLOOD COUNT 3.41 10^6/uL (4.00-5.40); WHITE BLOOD COUNT 8.6 10^3/uL (4.0-10.0)
== END 2024-02-13 16:15 ==
LOC: M INFU 10:43
PROVIDERS: ATTEND Family Medicine
DX: D64.9 Anemia, unspecified (principal); Z88.8 Allergy status to other drugs, medicaments and biological substances
CPT/HCPCS: 36430; 36591; 85027; P9016

== ENCOUNTER → 2024-03-31 | Outpatient (CLI) | payer MEDICARE, OTHER | LOC: M PLARAD 14:19 | PROVIDERS: ATTEND Internal Medicine Medical Oncology | DX: C18.8 Malignant neoplasm of overlapping sites of colon (principal) | CPT/HCPCS: 78815; A9552 ==

== ENCOUNTER → 2024-06-09 | Outpatient (REF) | payer MEDICARE, OTHER ==
[2024-06-09 19:43] LABS: BASO # 0.1 10^3/uL (0.0-0.2); BASO % 0.8 % (0.0-1.0); EOS # 0.1 10^3/uL (0.0-0.5); EOS % 1.9 % (0.0-3.0); HEMATOCRIT 44.8 % (36.0-47.0); HEMOGLOBIN 14.2 g/dl (12.0-15.5); LYMPH # 0.9 10^3/uL (1.5-5.0); LYMPH % 14.7 % (24.0-44.0); MEAN CORPUSCULAR HEMOGLOBIN 28.5 pg (27.0-33.0); MEAN CORPUSCULAR HGB CONC 31.7 g/dl (32.0-36.5); MONO # 0.3 10^3/uL (0.0-0.8); MONO % 5.2 % (2.0-8.0); NEUTROPHILS # 4.9 10^3/uL (1.5-8.5); NEUTROPHILS % 77.1 % (36.0-66.0); PLATELET COUNT, AUTOMATED 216 10^3/uL (150-450); RED BLOOD COUNT 4.98 10^6/uL (4.00-5.40); WHITE BLOOD COUNT 6.4 10^3/uL (4.0-10.0)
[2024-06-09 20:17] LABS: IRON (FE) 51 UG/DL (50-170); TOTAL IRON BINDING CAPACITY 340 UG/DL (250-425)
[2024-06-09 20:18] LABS: ALBUMIN 3.8 G/DL (3.2-5.2); ALKALINE PHOSPHATASE 40 U/L (35-104); ALT/SGPT 22 U/L (7.0-40); AST/SGOT 15 U/L (<34); BILIRUBIN,TOTAL 0.4 MG/DL (0.3-1.2); BLOOD UREA NITROGEN 17 MG/DL (9-23); CALCIUM LEVEL 9.5 MG/DL (8.3-10.6); CARBON DIOXIDE LEVEL 30 MMOL/L (20-31); CARCINOEMBRYONIC ANTIGEN < 2.0 NG/ML (<2.5); CHLORIDE LEVEL 101 MMOL/L (98-107); CREATININE FOR GFR 0.68 MG/DL (0.55-1.30); FERRITIN 39.8 NG/ML (7.3-270.7); GLOMERULAR FILTRATION RATE > 60.0 (>32); GLUCOSE, FASTING 189 MG/DL (74-106); POTASSIUM SERUM 4.9 MMOL/L (3.5-5.1); SODIUM LEVEL 139 MMOL/L (136-145); TOTAL PROTEIN 7.3 G/DL (5.7-8.2)
== END ==
LOC: M LABDRAWC 17:51
PROVIDERS: ATTEND Internal Medicine Medical Oncology
DX: C18.2 Malignant neoplasm of ascending colon (principal)

== ENCOUNTER → 2024-06-16 | Outpatient (CLI) | payer MEDICARE, OTHER ==
[~2024-06-16] MED LIST changes: +ISOVUE-370 76% 100ML VIAL As Ordered ONE
== END ==
LOC: M RAD 08:33
PROVIDERS: ATTEND Internal Medicine Medical Oncology
DX: C18.9 Malignant neoplasm of colon, unspecified (principal)
CPT/HCPCS: 71260; Q9967

== ENCOUNTER → 2024-06-30 | Outpatient (REF) | payer MEDICARE, OTHER ==
[~2024-06-30] MED LIST changes: -ISOVUE-370 76% 100ML VIAL As Ordered ONE
[2024-06-30 14:48] LABS: HEMATOCRIT 42.7 % (36.0-47.0); HEMOGLOBIN 13.7 g/dl (12.0-15.5); MEAN CORPUSCULAR HEMOGLOBIN 29.3 pg (27.0-33.0); MEAN CORPUSCULAR HGB CONC 32.1 g/dl (32.0-36.5); MEAN CORPUSCULAR VOLUME 91.2 fl (80.0-96.0); PLATELET COUNT, AUTOMATED 186 10^3/uL (150-450); RED BLOOD COUNT 4.68 10^6/uL (4.00-5.40)
[2024-06-30 15:03] LABS: IRON (FE) 77 UG/DL (50-170)
[2024-06-30 15:04] LABS: PERCENT SATURATION 20.7 % (13.2-45.0); TOTAL IRON BINDING CAPACITY 372 UG/DL (250-425)
[2024-06-30 15:05] LABS: ALBUMIN 3.9 G/DL (3.2-5.2); ALKALINE PHOSPHATASE 40 U/L (35-104); ALT/SGPT 18 U/L (7.0-40); AST/SGOT 15 U/L (<34); BILIRUBIN,TOTAL 0.6 MG/DL (0.3-1.2); BLOOD UREA NITROGEN 17 MG/DL (9-23); CALCIUM LEVEL 9.8 MG/DL (8.3-10.6); CARBON DIOXIDE LEVEL 30 MMOL/L (20-31); CHLORIDE LEVEL 100 MMOL/L (98-107); CHOLESTEROL LEVEL 173 MG/DL (<200); CHOLESTEROL RISK RATIO 4.54 (<5); CREATININE FOR GFR 0.75 MG/DL (0.55-1.30); GLOMERULAR FILTRATION RATE > 60.0 (>32); GLUCOSE, FASTING 194 MG/DL (74-106); HDL CHOLESTEROL 38.1 MG/DL (>40); NON-HDL-C 134.9 MG/DL; SODIUM LEVEL 137 MMOL/L (136-145); TOTAL PROTEIN 7.5 G/DL (5.7-8.2); TRIGLYCERIDES LEVEL 441 MG/DL (<150)
[2024-06-30 15:08] LABS: HEMOGLOBIN A1c 7.2 % (4.0-6.0)
== END ==
LOC: M SFHCADAM 10:06
PROVIDERS: ATTEND Family Medicine
DX: D50.0 Iron deficiency anemia secondary to blood loss (chronic) (principal); E11.9 Type 2 diabetes mellitus without complications; E78.2 Mixed hyperlipidemia

== ENCOUNTER → 2024-10-21 | Outpatient (REF) | payer MEDICARE, OTHER ==
[~2024-10-21] MED LIST changes: +ASPI-731 PO; -ASPI81CH32 PO; -PRAV20TA2 PO; +PRAV20TA78 PO; -PRAV40TA2 PO; +PRAV40TA85 PO
[2024-10-21 18:18] LABS: BASO # 0.1 10^3/uL (0.0-0.2); BASO % 0.9 % (0.0-1.0); EOS # 0.1 10^3/uL (0.0-0.5); EOS % 1.4 % (0.0-3.0); LYMPH # 1.0 10^3/uL (1.5-5.0); LYMPH % 17.3 % (24.0-44.0); MONO # 0.4 10^3/uL (0.0-0.8); MONO % 7.8 % (2.0-8.0); NEUTROPHILS # 4.1 10^3/uL (1.5-8.5); NEUTROPHILS % 72.2 % (36.0-66.0); PLATELET COUNT, AUTOMATED 186 10^3/uL (150-450)
[2024-10-21 18:28] LABS: ALT/SGPT 22 U/L (7.0-40); AST/SGOT 21 U/L (<34); CALCIUM LEVEL 9.7 MG/DL (8.3-10.6); CARBON DIOXIDE LEVEL 25 MMOL/L (20-31); CHLORIDE LEVEL 100 MMOL/L (98-107); CREATININE FOR GFR 0.72 MG/DL (0.55-1.30); GLOMERULAR FILTRATION RATE 80.4 (>32); POTASSIUM SERUM 4.7 MMOL/L (3.5-5.1); SODIUM LEVEL 139 MMOL/L (136-145)
== END ==
LOC: M LABDRWCV 17:26
PROVIDERS: ATTEND Internal Medicine Medical Oncology
DX: C18.9 Malignant neoplasm of colon, unspecified (principal)

== ENCOUNTER → 2024-12-08 | Outpatient (REF) | payer MEDICARE, OTHER ==
[2024-12-08 18:47] LABS: BASO # 0.0 10^3/uL (0.0-0.2); BASO % 0.8 % (0.0-1.0); EOS # 0.1 10^3/uL (0.0-0.5); EOS % 1.6 % (0.0-3.0); LYMPH # 0.9 10^3/uL (1.5-5.0); LYMPH % 18.4 % (24.0-44.0); MONO # 0.4 10^3/uL (0.0-0.8); MONO % 7.3 % (2.0-8.0); NEUTROPHILS # 3.5 10^3/uL (1.5-8.5); NEUTROPHILS % 71.7 % (36.0-66.0); PLATELET COUNT, AUTOMATED 168 10^3/uL (150-450)
[2024-12-08 18:51] LABS: ALT/SGPT 27 U/L (7.0-40); AST/SGOT 23 U/L (<34); CALCIUM LEVEL 9.4 MG/DL (8.3-10.6); CARBON DIOXIDE LEVEL 28 MMOL/L (20-31); CHLORIDE LEVEL 101 MMOL/L (98-107); CREATININE FOR GFR 0.73 MG/DL (0.55-1.30); GLOMERULAR FILTRATION RATE 79.1 (>32); POTASSIUM SERUM 4.4 MMOL/L (3.5-5.1); SODIUM LEVEL 139 MMOL/L (136-145)
== END ==
LOC: M LABDRWCV 17:49
PROVIDERS: ATTEND Internal Medicine Medical Oncology
DX: C18.2 Malignant neoplasm of ascending colon (principal)

== ENCOUNTER → 2024-12-15 | Outpatient (CLI) | payer MEDICARE, OTHER ==
[~2024-12-15] MED LIST changes: +ISOVUE-370 76% 100 ML VIAL As Ordered ONE
== END ==
LOC: M RAD 10:33
DX: C18.9 Malignant neoplasm of colon, unspecified (principal)
CPT/HCPCS: 71260; 74177; Q9967

== ENCOUNTER → 2024-12-30 | Outpatient (REF) | payer MEDICARE, OTHER ==
[~2024-12-30] MED LIST changes: -ISOVUE-370 76% 100 ML VIAL As Ordered ONE
[2024-12-30 18:23] LABS: PLATELET COUNT, AUTOMATED 194 10^3/uL (150-450)
[2024-12-30 18:38] LABS: ALT/SGPT 31 U/L (7.0-40); AST/SGOT 24 U/L (<34); CALCIUM LEVEL 9.6 MG/DL (8.3-10.6); CARBON DIOXIDE LEVEL 28 MMOL/L (20-31); CHLORIDE LEVEL 97 MMOL/L (98-107); CHOLESTEROL LEVEL 237 MG/DL (<200); CHOLESTEROL RISK RATIO 6.90 (<5); CREATININE FOR GFR 0.70 MG/DL (0.55-1.30); GLOMERULAR FILTRATION RATE 83.1 (>32); NON-HDL-C 202.7 MG/DL; POTASSIUM SERUM 4.7 MMOL/L (3.5-5.1); SODIUM LEVEL 135 MMOL/L (136-145); TRIGLYCERIDES LEVEL 832 MG/DL (<150)
[2024-12-30 18:58] LABS: ESTIMATED AVERAGE GLUCOSE 183.0 MG/DL (60-110)
== END ==
LOC: M SFHCADAM 11:29
PROVIDERS: ATTEND Family Medicine
DX: I11.9 Hypertensive heart disease without heart failure (principal); E11.9 Type 2 diabetes mellitus without complications; D50.0 Iron deficiency anemia secondary to blood loss (chronic); E78.2 Mixed hyperlipidemia

== ENCOUNTER → 2025-02-16 | Outpatient (REF) | payer MEDICARE, OTHER ==
[~2025-02-16] MED LIST changes: +RED600CA7 PO; -REDCAP3 PO
[2025-02-16 18:03] LABS: ALT/SGPT 20 U/L (7.0-40); AST/SGOT 18 U/L (<34); CALCIUM LEVEL 9.2 MG/DL (8.3-10.6); CARBON DIOXIDE LEVEL 27 MMOL/L (20-31); CHLORIDE LEVEL 100 MMOL/L (98-107); CHOLESTEROL LEVEL 186 MG/DL (<200); CHOLESTEROL RISK RATIO 5.61 (<5); CREATININE FOR GFR 0.82 MG/DL (0.55-1.30); GLOMERULAR FILTRATION RATE 68.8 (>32); NON-HDL-C 152.9 MG/DL; POTASSIUM SERUM 4.5 MMOL/L (3.5-5.1); SODIUM LEVEL 138 MMOL/L (136-145); TRIGLYCERIDES LEVEL 514 MG/DL (<150)
[2025-02-16 18:52] LABS: ESTIMATED AVERAGE GLUCOSE 189.0 MG/DL (60-110)
== END ==
LOC: M SFHCCAPE 07:51
PROVIDERS: ATTEND Family Medicine
DX: E11.9 Type 2 diabetes mellitus without complications (principal); E78.2 Mixed hyperlipidemia